=== PATIENT | male | born 1945 | race Caucasian/White ===

== ENCOUNTER 2018-12-08 17:24 | Inpatient (IN) ==
[2018-12-08] MEDS ORDERED: Ondansetron 4 MG/2 ML VIAL IVP ONE (18:15)
--- NOTE | 2018-12-08 18:26 | Emergency Department Note ---
Disposition Clinical Impression: Acute exacerbation of chronic obstructive airways disease, Dizziness Vomiting Qualifiers: Vomiting type: unspecified Vomiting Intractability: non-intractable Nausea presence: with nausea Qualified Code(s): R11.2 - Nausea with vomiting, unspecified Disposition: Admitted As Inpatient Condition: Fair Referrals: NONE,PCP [Primary Care Provider] - Forms: ED Satisfaction Letter Time of Disposition: 21:45 General Adult HPI - General Chief complaint: ED Shortness of Breath/Dyspnea Stated complaint: dizzy GABRIEL Time Seen by Provider: 12/08/18 18:03 Source: patient Limitations: no limitations Nursing Notes Reviewed: Yes Vital Signs Reviewed: Yes - History of Present Illness HPI Narrative: Patient presents to the ED with a chief complaint of dizziness, weakness, vomiting. Onset a couple of weeks ago. He states he feels weak and is having trouble standing up. He does not describe a dizziness spinning type sensation. He states every time he eats his been vomiting for the past 3 days. Denies ab dominal pain. Denies fever. No chest pain. Shortness of breath is at baseline. Dry cough. Patient denies any bleeding rectally. Denies vomiting blood. Pain Scale: 0 - Related Data Previous Rx's Medication Instructions Recorded Lidocaine Patch [Lidoderm 5% patch] 1 each TP DAILY PRN #3 adh..patch 05/26/17 Peg 3350/Na Sulf,Bicarb,Cl/KCl 4,000 ml PO ONCE #1 soln.recon 05/26/17 [Golytely Solution] Polyethylene Glycol 3350 [MiraLAX] 17 gm PO DAILY PRN #5 powd.pack 05/26/17 HYDROcodone/Acet 5/325 mg [[place] 1 tab PO Q6H PRN 3 Days #12 tab 11/13/17 5-325 mg] Pantoprazole Sodium [Protonix] 40 mg PO DAILY #30 tablet. 11/13/17 Allergies Allergy/AdvReac Type Severity Reaction Status Date / Time No Known Allergies Allergy Verified 11/13/17 14:02 All systems ED: reviewed and negative except as stated. Constitutional: Denies: fever Cardiovascular: Denies: chest pain Respiratory: Reports: cough, dyspnea Gastrointestinal: Reports: nausea, vomiting. Denies: abdominal pain, diarrhea Past Medical History - Past Medical History Attestation: Yes The following information was validated with the patient. Source: patient Medical history: Reports: COPD, diabetes, hyperlipidemia, hypertension Psychiatric history: Reports: no psych history - Social History Smoking Status: Former smoker Smokeless Tobacco Status: No Alcohol use: Reports: none Drug use: Reports: none Physical Exam Patient awake and alert in no distress. He does have bilateral horizontal nystagmus. - General Limitations: no limitations General appearance: alert - Head Head exam: atraumatic, normocephalic, normal inspection - Eye Eye exam: Present: PERRL, EOMI, nystagmus. Absent: periorbital swelling - ENT ENT exam: normal oropharynx, mucous membranes moist, TM's normal bilaterally - Neck Neck exam: Present: normal inspection - Chest Chest inspection: Present: normal inspection, symmetric chest wall rise - Respiratory Respiratory exam: Present: other (Decreased bilaterally) - Cardiovascular Cardiovascular exam: Present: tachycardia - Abdominal Exam Abdominal exam: Present: soft, Non-Tender - Neurological Exam Neurological exam: Present: alert, oriented X3 - Psychiatric Psychiatric exam: Present: normal affect - Skin Skin exam: Present: warm, dry Course Course Narrative: Patient is tachycardic but otherwise stable. Cardiac workup. CT head. Stanley weiss. - Reevaluation(s) Reevaluation #1: Patient reevaluated. Plenty of her rash was back. Mild maculopapular rash. He is also has a difficulty breathing. He has some extra Tory wheezing. He is in no distress. We will give him 3 treatments and some Solu-Medrol. Awaiting V/Q result at this time. Time: 21:18 - Consultations Consultation #1: Dr. Craig accepts for admission. Request blood cultures. Time: 21:56 Vital Signs Temperature 98.8 F 12/08/18 17:50 Pulse Rate 127 12/08/18 17:50 Respiratory Rate 18 12/08/18 17:50 Blood Pressure 110/70 12/08/18 17:50 O2 Sat by Pulse Oximetry 97 12/08/18 17:50 Temperature 98.8 F 12/08/18 17:50 Pulse Rate 105 12/08/18 21:27 Respiratory Rate 24 12/08/18 21:30 Blood Pressure 118/61 12/08/18 21:30 O2 Sat by Pulse Oximetry 96 12/08/18 21:30 Oxygen Delivery Oxygen Delivery Nasal Cannula Medical Decision Making - [facility] Narrative Medical decision making narrative: Patient with multiple complaints. He has not vomited here. CT abdomen pelvis is unremarkable. No signs of obstruction or inflammation. He is having a COPD exacerbation. His x-rays clear. He does have a leukocytosis we will treat him with an antibiotic. Dizziness. Improved but not resolved. CT head is unremarkable as well. Patient be in for these medical reasons and also some social concerns as he thinks he needs some home health. Unclear the cause of his leukocytosis. He was recently on steroids a couple of weeks ago. This could possibly be contributing. - Lab Data Result diagrams: 12/08/18 18:20 12/08/18 18:20 Lab Results 12/08/18 12/08/18 12/08/18 Range/Units 18:20 18:20 18:30 WBC 25.1 H (4.3-11.1) K/mcL RBC 4.05 L (4.19-5.50) M/mcL Hgb 12.1 L (12.9-16.9) g/dL Hct 36.7 L (37.5-50.1) % MCV 90.6 (83.0-100.0) fL MCH 29.9 (28.0-33.3) pg MCHC 33.0 (31.6-35.5) g/dL RDW 14.8 H (11.5-14.5) % Plt Count 159 (140-400) K/mcL MPV 11.0 (9.4-12.4) fL Immature Gran % 1.3 (0-4) % Seg Neutrophils % 69.5 % Lymphocytes % 3.7 % Monocytes % 24.7 % Eosinophils % 0.5 % Basophils % 0.3 % Neutrophils # 17.4 H (1.6-8.9) K/mcL Lymphocytes # 0.9 (0.6-4.6) K/mcL Monocytes # 6.2 H (0.0-1.3) K/mcL Eosinophils # 0.1 (0.0-0.6) K/mcL Basophils # 0.1 (0.0-0.2) K/mcL Platelet Estimate Normal (Normal) D-Dimer 5591 H (0-500) ng/mLFEU Sodium 133 L (136-145) mEq/L Potassium 4.4 (3.5-5.1) mEq/L Chloride 99 (98-107) mEq/L Carbon Dioxide 26 (23-29) mEq/L BUN 28 H (8-23) mg/dL Creatinine 2.75 H (0.70-1.30) mg/dL Est GFR ( Amer) 28 L (> 60) Est GFR (Non-Af Amer) 23 L (> 60) BUN/Creatinine Ratio 10 (6-26) Glucose 198 H (70-105) mg/dL Calculated Osmolality 287 (280-300) Calcium 9.2 (8.6-10.3) mg/dL Total Bilirubin 0.9 (0.3-1.0) mg/dL AST 15 (13-39) Units/L ALT 13 (7-52) Units/L Alkaline Phosphatase 60 (34-104) Units/L Troponin I < 0.03 (< 0.04) ng/mL Serum Total Protein 7.7 (6.4-8.9) g/dL Albumin 4.1 (3.5-5.7) g/dL Globulin 3.6 H (2.4-3.5) g/dL Albumin/Globulin Ratio 1.1 (1.1-2.2) Urine Color (Yellow) Urine Clarity (Clear) Urine pH (5.0-8.0) pH Units Ur Specific [place] (1.010-1.025) Urine Protein (Neg-Trace) mg/dL Urine Glucose (UA) (Normal) mg/dL Urine Ketones (Negative) mg/dL Urine Blood (Negative) Urine Nitrite (Negative) Urine Bilirubin (Negative) Urine Urobilinogen (Normal) mg/dL Ur Leukocyte Esterase (Negative) Urine Microscopic RBC (0-3) per hpf Urine Microscopic WBC (0-3) per hpf Ur Squamous Epith Cells (None-Few) per lpf Ur Renal Epithelial Cell (None-Few) per hpf Calcium Oxalate Crystal Urine Bacteria (None-Few) per hpf Hyaline Casts (None-Few) per lpf Waxy Casts (None Seen) per lpf Urine Mucus (Few) Ur Culture Indicated? (NO) 12/08/18 Range/Units 20:28 WBC (4.3-11.1) K/mcL RBC (4.19-5.50) M/mcL Hgb (12.9-16.9) g/dL Hct (37.5-50.1) % MCV (83.0-100.0) fL MCH (28.0-33.3) pg MCHC (31.6-35.5) g/dL RDW (11.5-14.5) % Plt Count (140-400) K/mcL MPV (9.4-12.4) fL Immature Gran % (0-4) % Seg Neutrophils % % Lymphocytes % % Monocytes % % Eosinophils % % Basophils % % Neutrophils # (1.6-8.9) K/mcL Lymphocytes # (0.6-4.6) K/mcL Monocytes # (0.0-1.3) K/mcL Eosinophils # (0.0-0.6) K/mcL Basophils # (0.0-0.2) K/mcL Platelet Estimate (Normal) D-Dimer (0-500) ng/mLFEU Sodium (136-145) mEq/L Potassium (3.5-5.1) mEq/L Chloride (98-107) mEq/L Carbon Dioxide (23-29) mEq/L BUN (8-23) mg/dL Creatinine (0.70-1.30) mg/dL Est GFR ( Amer) (> 60) Est GFR (Non-Af Amer) (> 60) BUN/Creatinine Ratio (6-26) Glucose (70-105) mg/dL Calculated Osmolality (280-300) Calcium (8.6-10.3) mg/dL Total Bilirubin (0.3-1.0) mg/dL AST (13-39) Units/L ALT (7-52) Units/L Alkaline Phosphatase (34-104) Units/L Troponin I (< 0.04) ng/mL Serum Total Protein (6.4-8.9) g/dL Albumin (3.5-5.7) g/dL Globulin (2.4-3.5) g/dL Albumin/Globulin Ratio (1.1-2.2) Urine Color Dark Yellow (Yellow) Urine Clarity Cloudy A (Clear) Urine pH 5.0 (5.0-8.0) pH Units Ur Specific [place] 1.025 (1.010-1.025) Urine Protein 100 H (Neg-Trace) mg/dL Urine Glucose (UA) Normal (Normal) mg/dL Urine Ketones Trace H (Negative) mg/dL Urine Blood Negative (Negative) Urine Nitrite Negative (Negative) Urine Bilirubin Moderate H (Negative) Urine Urobilinogen Normal (Normal) mg/dL Ur Leukocyte Esterase Trace H (Negative) Urine Microscopic RBC 5-15 H (0-3) per hpf Urine Microscopic WBC 5-15 H (0-3) per hpf Ur Squamous Epith Cells Many H (None-Few) per lpf Ur Renal Epithelial Cell Few (None-Few) per hpf Calcium Oxalate Crystal Present Urine Bacteria Moderate H (None-Few) per hpf Hyaline Casts Few (None-Few) per lpf Waxy Casts Few H (None Seen) per lpf Urine Mucus Moderate H (Few) Ur Culture Indicated? YES A (NO) - Radiology Data Radiology results reviewed: Yes I reviewed the patient's radiology results. Chest X-Ray 12/08/18 18:15 IMPRESSION: No active cardiopulmonary disease D/ / Otilio Dixon MD / Otilio Dixon MD Interpreting Provider: Otilio Dixon MD Head CT 12/08/18 18:15 IMPRESSION: No acute intracranial abnormality. D/ / Otilio Dixon MD / Otilio Dixon MD Interpreting Provider: Otilio Dixon MD Pulmonary Perfusion Imaging 12/08/18 19:25 IMPRESSION: Low probability for pulmonary embolus. D/ / Lincoln Armstrong MD / Lincoln Armstrong MD Interpreting Provider: Lincoln Armstrong MD Abdomen/Pelvis CT 12/08/18 19:26 IMPRESSION: 1. Wall thickening of the urinary bladder which could be due to cystitis or chronic bladder outlet obstruction 2. Right renal atrophy, possibly due to renal artery stenosis 3. Cholelithiasis with no evidence of cholecystitis 4. Diverticulosis with no evidence of diverticulitis 5. 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 EKG results narrative: Sinus tach [address] segments. QT 37 QTC 434. Unchanged from prior EKG in October.
[2018-12-08 18:36] LABS: Basophils % 0.3 %; Immature Granulocytes % 1.3 % (0-4); Lymphocytes % 3.7 %; Mean Corpuscular Hemoglobin 29.9 pg (28.0-33.3)
[2018-12-08 18:37] LABS: Basophils # 0.1 K/mcL (0.0-0.2); Eosinophils # 0.1 K/mcL (0.0-0.6); Eosinophils % 0.5 %; Hematocrit 36.7 % (37.5-50.1); Hemoglobin 12.1 g/dL (12.9-16.9); Lymphocytes # 0.9 K/mcL (0.6-4.6); Mean Corpuscular Volume 90.6 fL (83.0-100.0); Monocytes # 6.2 K/mcL (0.0-1.3); Monocytes % 24.7 %; Neutrophils # 17.4 K/mcL (1.6-8.9); Platelet Count 159 K/mcL (140-400); Red Blood Count 4.05 M/mcL (4.19-5.50); Red Cell Distribution Width 14.8 % (11.5-14.5); Segmented Neutrophils % 69.5 %
[2018-12-08 18:53] LABS: Platelet Estimate Normal (Normal)
[2018-12-08 18:56] LABS: Alanine Aminotransferase 13 Units/L (7-52); Albumin 4.1 g/dL (3.5-5.7); Albumin/Globulin Ratio 1.1 (1.1-2.2); Alkaline Phosphatase 60 Units/L (34-104); Aspartate Amino Transferase 15 Units/L (13-39); BUN/Creatinine Ratio 10 (6-26); Bilirubin,Total 0.9 mg/dL (0.3-1.0); Blood Urea Nitrogen 28 mg/dL (8-23); Calcium 9.2 mg/dL (8.6-10.3); Carbon Dioxide 26 mEq/L (23-29); Chloride 99 mEq/L (98-107); Globulin 3.6 g/dL (2.4-3.5); Glucose 198 mg/dL (70-105); Osmolality,Calculated 287 (280-300); Potassium 4.4 mEq/L (3.5-5.1); Sodium 133 mEq/L (136-145); Total Protein 7.7 g/dL (6.4-8.9); Troponin I < 0.03 ng/mL (< 0.04); eGFR For Non-African Americans 23 (> 60)
[2018-12-08 20:37] LABS: Bilirubin,Urine Moderate (Negative); Blood,Urine Negative (Negative); Clarity,Urine Cloudy (Clear); Color,Urine Dark Yellow (Yellow); Glucose,Urine (UA) Normal (Normal); Ketones,Urine Trace mg/dL (Negative); Leukocyte Esterase,Urine Trace (Negative); Nitrite,Urine Negative (Negative); Protein,Urine 100 mg/dL (Neg-Trace); Specific Gravity,Urine 1.025 (1.010-1.025); Urobilinogen,Urine Normal (Normal)
[2018-12-08 20:39] LABS: Squamous Epithelial Cell,Urine Many per lpf (None-Few)
[2018-12-08 20:54] LABS: Hyaline Casts,Urine Few per lpf (None-Few); Mucus,Urine Moderate (Few); Renal Epithelial Cells,Urine Few per hpf (None-Few); Waxy Casts,Urine Few per lpf (None Seen)
[2018-12-08 20:55] LABS: Bacteria,Urine Moderate per hpf (None-Few); Calcium Oxalate Crystals,Urine Present
[2018-12-08] MEDS ORDERED: methylPREDNISolone 125 MG/2 ML VIAL IVP ONE (21:17)
[2018-12-08] MEDS ORDERED: Ipratropium/Albuterol Neb 3 ML IH ONE (21:17)
[2018-12-08] MEDS ORDERED: Azithromycin 500 MG in D5% in Water 250 ML IVPB ONE (21:29)
--- NOTE | 2018-12-08 22:09 | Internal Med History&Physical ---
<Oscar Solano S - Last Filed: 12/08/18 23:44> Date of Encounter: 12/08/18 Time of Encounter: 22:47 Internal Medicine - H&P: HPI Chief complaint: sob/syncope Admitted From: Home Plans for Post Hospital Care: Home History of present illness: Mr. Nicolas is a 73 year old male with PMH of COPD on 3L, HLD, GERD and CKD. He is here today with the cc of syncope and SOB. The syncope has been going on for many weeks now, he states that when he stands up he passes out if he gets up too quikcly. He denies any preceeding palpiltations or chest pain. He denies tinnitus or visual changes. He states that he looses consciousness at times when he hits the ground. He denies any hx of arrythmia or a fib. He does take multiple diuretics but takes them as prescribed. He has been having increasing SOB from baseline x 3 days. He states that the most active thing he does is go to the bathroom and now he is having trouble doing so and gets very SOB. He has had increasing sputum production and cough. He denies any hemoptysis. He has had to increase his baseline oxygen from 3 L to 4 L at times. He is having a hard time talking in full sentences and family has had to help him answer questions. He does c/o fevers and chills. Family states he hasn't taken his temperature at home. He c/o diffuse excoriations and states he has bed bugs. Family denies this. They state he uses his back boot liner maker way too hard. He lives at home and hardly leaves the house, has a very hard time performing ADL's. In the ER the pt was found to have an elevated white count and D-dimer. CT scan abd/pelvis showed possible cystitis and renal aa stenosis. Due to poor kidney fxn, VQ scan was obtained and was negative for acute PE. Blood cx were ordered. He was given a one time dose of azithromycin in the ER. He will be admitted for further evaluation and treatment. Past Med Surg Social Fam HX - Past Medical History Medical history: COPD, diabetes, hyperlipidemia, hypertension Psychiatric history: no psych history - Past Surgical History Additional surgical history: abd surgery d/t trauma - Social History Smoking Status: Former smoker Smokeless Tobacco Status: No Alcohol use: none Drug use: none - Family History Mother Adopted: No Race: Hx Family Cardiac Disorders: Yes Father Adopted: No Race: Hx Family Cardiac Disorders: Yes Internal Medicine - H&P: Meds Aspirin [Lo-Dose Aspirin EC] 81 mg PO DAILY 12/08/18 [History] Furosemide [Lasix] 20 mg PO QPM 12/08/18 [History] Furosemide [Lasix] 40 mg PO QAM 12/08/18 [History] Insulin Glargine,Hum.rec.anlog [Lantus Solostar] 20 units SQ HS 12/08/18 [History] Insulin LISPRO [Humalog Kwikpen U-100] 15 unit SQ TIDAC 12/08/18 [History] Latanoprost [Xalatan] 1 drop BOTH EYES HS 12/08/18 [History] Lisinopril [Zestril] 40 mg PO DAILY 12/08/18 [History] Montelukast [Singulair] 10 mg PO DAILY 12/08/18 [History] Omeprazole [PriLOSEC] 20 mg PO DAILY 12/08/18 [History] Simvastatin 80 mg PO HS 12/08/18 [History] hydroCHLOROthiazide [Hydrochlorothiazide] 25 mg PO DAILY 12/08/18 [History] Allergy/AdvReac Type Severity Reaction Status Date / Time No Known Allergies Allergy Verified 12/08/18 22:07 All Systems PM: A 10-system review of systems was performed and is negative for pertinent findings except as documented above in the HPI. - Constitutional Constitutional: chills, fatigue, fever(s), falls, lethargy, malaise, weakness - EENT Eyes: no blurry vision, no change in vision Ears: no tinnitus - Cardiovascular Cardiovascular ROS IM: dyspnea, dyspnea on exertion, no chest pain, no palpitations - Respiratory Respiratory: cough, dyspnea on exertion, chest congestion, excessive phlegm production, no hemoptysis - Gastrointestinal Gastrointestinal: abdominal pain, nausea, vomiting, no diarrhea - Genitourinary Genitourinary ROS male: no difficulty urinating, no dysuria, no hematuria - Musculoskeletal Musculoskeletal ROS IM: back pain, neck pain, no stiffness, no tingling - Integumentary Integumentary IM: rash, sores - Neurological Neurological ROS: dizziness, weakness, no numbness, no tingling - Psychiatric Psychiatric: no anxiety, no depression - Endocrine Endocrine IM: fatigue - Hematologic/Lymphatic Hematologic/Lymphatic: no easy bleeding, no easy bruising - Constitutional Vitals: Temp Pulse Resp BP Pulse Ox 98.8 F 105 24 118/61 96 12/08/18 17:50 12/08/18 21:27 12/08/18 21:30 12/08/18 21:30 12/08/18 21:30 General appearance: Present: mild distress, A&O X 3, obese Exam: general - aox3, mild distress, cooperative, obese heent - dry mucuous membranes, NCAT, no scleral icterus neck - no jvd, trachea midline cardio - tacycardia, s1s2, cta, no mrg lungs - decreased breath sounds, mild resp distress, unable to speak in full setences (+) coarse breath sounds and rhonchi abd- mild tenderness to palpation, no rebound/guarding, no peritoneal signs back - no rash, no brusing noted; there are some excoriations to the back towards shoulders extremities - moves all extremeities equally, strength 5/5 excoriations to the LE and UE neuro - no FND, CN2-12 grossly intact, sensation intact psych - mildly anxious skin - multiple excoriations to the abdomen, back, UE and LE Internal Med - H&P Results - Labs CBC & Chem 7: 12/08/18 18:20 12/08/18 18:20 Labs: Short CBC 12/08/18 Range/Units 18:20 WBC 25.1 H (4.3-11.1) K/mcL Hgb 12.1 L (12.9-16.9) g/dL Hct 36.7 L (37.5-50.1) % Plt Count 159 (140-400) K/mcL Neutrophils # 17.4 H (1.6-8.9) K/mcL BMP 12/08/18 18:20 Sodium 133 L Potassium 4.4 Chloride 99 Carbon Dioxide 26 BUN 28 H Creatinine 2.75 H Glucose 198 H Calcium 9.2 Cardiac Enzymes 12/08/18 Range/Units 18:20 Troponin I < 0.03 (< 0.04) ng/mL Liver Function 12/08/18 Range/Units 18:20 Total Bilirubin 0.9 (0.3-1.0) mg/dL AST 15 (13-39) Units/L ALT 13 (7-52) Units/L Alkaline Phosphatase 60 (34-104) Units/L Albumin 4.1 (3.5-5.7) g/dL Urine 12/08/18 Range/Units 20:28 Urine Color Dark Yellow (Yellow) Urine Clarity Cloudy A (Clear) Urine pH 5.0 (5.0-8.0) pH Units Ur Specific [place] 1.025 (1.010-1.025) Urine Protein 100 H (Neg-Trace) mg/dL Urine Glucose (UA) Normal (Normal) mg/dL - Impressions ITS Impressions Chest X-Ray 12/08/18 18:15 IMPRESSION: No active cardiopulmonary disease D/ / Otilio Dixon MD / Otilio Dixon MD Interpreting Provider: Otilio Dixon MD Head CT 12/08/18 18:15 IMPRESSION: No acute intracranial abnormality. D/ / Otilio Dixon MD / Otilio Dixon MD Interpreting Provider: Otilio Dixon MD Pulmonary Perfusion Imaging 12/08/18 19:25 IMPRESSION: Low probability for pulmonary embolus. D/ / Lincoln Armstrong MD / Lincoln Armstrong MD Interpreting Provider: Lincoln Armstrong MD Abdomen/Pelvis CT 12/08/18 19:26 IMPRESSION: 1. Wall thickening of the urinary bladder which could be due to cystitis or chronic bladder outlet obstruction 2. Right renal atrophy, possibly due to renal artery stenosis 3. Cholelithiasis with no evidence of cholecystitis 4. Diverticulosis with no evidence of diverticulitis 5. 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 with no evidence of femoral head collapse D/ / Otilio Dixon MD / Otilio Dixon MD Interpreting Provider: Otilio Dixon MD - Assessment and Plan (1) Sepsis Current Visit: Yes Status: Acute Assessment and plan: Pt with increasing SOB from baseline, increased oxygen needs from baseline, increasing sputum production - meets criteria for SIRS for WBC/HR/RR; has remained afebrile - on chronic 3 L home oxygen, has been requiring 4L Source of infxn unknown at this time, could be possible UTI vs developing PNA not seen on imaging XR chest showed no acute cardiopulmonary process, consider repeating when pt is rehydrated CT abd/pelvis showed lingular scarring; wall thickening of urinary bladder cystitis vs chronic bladder outlet obstruction VQ scan low probability for PE UA showed (+) ketones, leukocyte esterase, WBC Pt denies hospitalization in the last 90 days nor has he received IV abx in the last 90 days Plan: - 500cc bolus 0.9 NS followed by 100cc/hr 0.9 NS - blood cx pending - urine cx pending - sputum cx pending - start azithromycin/rocephin day 1; will cover for CAP and UTI - strep pneumo and legionella urine antigens pending - mucinex BID - duonebs - solumedrol 60mg q8hr - zofran prn nausea - FEN: ADA diet - DVT prophylaxis: SQ heparin - dispo: syncope workup, improvement of respiratory status; will require inpt IV abx PTO evaluation, SW consulted Qualifiers: Sepsis type: sepsis due to unspecified organism Qualified Code(s): A41.9 - Sepsis, unspecified organism (2) Syncope Current Visit: Yes Status: Acute Assessment and plan: Pt c/o syncopal episodes, states when he stands up he gets lightheaded and passes out - no on anticoagulation - EKG showed NSR, no known hx of a fib and denies hx of heart dz Could be 2/2 sepsis vs carotid aa stenosis vs arrythmia induced vs medication induced (awaiting med reconciliation) - head CT negative for acute intracranial abnormality - meclizine given in the ER Plan: - consider cardiology consult if the below is abnormal - ECHO pending - carotid duplex US pending - orthostatics pending - UDS pending Qualifiers: Syncope type: unspecified Qualified Code(s): R55 - Syncope and collapse (3) DVT prophylaxis Current Visit: Yes Status: Acute Assessment and plan: sq heparin (4) Acute kidney injury superimposed on CKD Current Visit: Yes Status: Acute Assessment and plan: Pt has had an increasing creatinine over the last few months - has not been admitted to [facility] since 2018; follows with Dr. Doll as an outpatient - baseline creatinine appears to be around 2 CT on admission showed right renal atrophy, possibly due to renal artery stenosis Plan: - urine sodium/creatinine/eosinophils pending - urine pr/creatinine ratio pending - retroperitoneal US pending - strict I&O - avoid nephrotoxins and renally dose rx when appropriate - nephrology consulted - will hold PPI, lasix, HCTZ (5) Obesity Current Visit: No Status: Chronic Assessment and plan: BMI 31.3, chronic, counseled. Qualifiers: Obesity type: due to excess calories Obesity classification: adult class 1 (BMI 30 - 34.9) Serious obesity comorbidity presence: with serious comorbidity Body mass index: BMI 31.0-31.9 Qualified Code(s): E66.09 - Other obesity due to excess calories; Z68.31 - Body mass index (BMI) 31.0-31.9, adult (6) UTI (urinary tract infection) Current Visit: Yes Status: Acute Assessment and plan: UA as above. Plan as above. Qualifiers: Urinary tract infection type: acute cystitis Hematuria presence: without hematuria Qualified Code(s): N30.00 - Acute cystitis without hematuria (7) Elevated d-dimer Current Visit: Yes Status: Acute Assessment and plan: D-dimer 5591 - VQ scan negative for pulmonary embolism - pt not UTD on age appropriate cancer screening, consider colonoscopy verses further imaging to evaluate for underlying lung mass (8) Type 2 diabetes mellitus Current Visit: No Status: Chronic Assessment and plan: Glucose on admission 273. MDSS, accucheck, ADA diet. One time levemir now. Qualifiers: Diabetes mellitus termite control representative insulin use: without termite control representative use Diabetes mellitus complication status: without complication Qualified Code(s): E11.9 - Type 2 diabetes mellitus without complications (9) Acute exacerbation of chronic obstructive airways disease Current Visit: Yes Status: Acute Assessment and plan: See plan as above for sepsis. Possibly 2/2 developing PNA vs viral infxn. 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 Can consider further workup as an outpatient. (12) GERD (gastroesophageal reflux disease) Current Visit: No Status: Chronic Assessment and plan: chronic, takes PPI at home and will hold in the setting of NEVILLE until AIN r/o. Qualifiers: Esophagitis presence: esophagitis presence not specified Qualified Code(s): K21.9 - Gastro-esophageal reflux disease without esophagitis - Time Spent With Patient Total time spent is greater than 50% in coordination of care (as documented) at patient's floor/unit and/or counseling patient: 25 - 35 minutes <Ray Carrera - Last Filed: 12/09/18 03:10> Date of Encounter: 12/08/18 Internal Medicine - H&P: HPI History of present illness: Mr. Nicolas is a 73 year old male All Systems PM: A 10-system review of systems was performed and is negative for pertinent findings except as documented above in the HPI. - Constitutional Vitals: Temp Pulse Resp BP Pulse Ox 99.2 F 114 24 127/78 95 12/08/18 23:31 12/08/18 23:47 12/08/18 23:47 12/08/18 23:47 12/09/18 01:00 Internal Med - H&P Results - Labs CBC & Chem 7: 12/09/18 01:07 12/09/18 01:07 Labs: Short CBC 12/08/18 12/09/18 Range/Units 18:20 01:07 WBC 25.1 H 21.9 H (4.3-11.1) K/mcL Hgb 12.1 L 11.1 L (12.9-16.9) g/dL Hct 36.7 L 33.7 L (37.5-50.1) % Plt Count 159 147 (140-400) K/mcL Neutrophils # 17.4 H (1.6-8.9) K/mcL BMP 12/08/18 12/09/18 18:20 01:07 Sodium 133 L 133 L Potassium 4.4 3.9 Chloride 99 96 L Carbon Dioxide 26 25 BUN 28 H 32 H Creatinine 2.75 H 2.99 H Glucose 198 H 346 H Calcium 9.2 8.6 Cardiac Enzymes 12/08/18 Range/Units 18:20 Troponin I < 0.03 (< 0.04) ng/mL Liver Function 12/08/18 Range/Units 18:20 Total Bilirubin 0.9 (0.3-1.0) mg/dL AST 15 (13-39) Units/L ALT 13 (7-52) Units/L Alkaline Phosphatase 60 (34-104) Units/L Albumin 4.1 (3.5-5.7) g/dL Urine 12/08/18 Range/Units 20:28 Urine Color Dark Yellow (Yellow) Urine Clarity Cloudy A (Clear) Urine pH 5.0 (5.0-8.0) pH Units Ur Specific [place] 1.025 (1.010-1.025) Urine Protein 100 H (Neg-Trace) mg/dL Urine Glucose (UA) Normal (Normal) mg/dL - Impressions ITS Impressions Chest X-Ray 12/08/18 18:15 IMPRESSION: No active cardiopulmonary disease D/ / Otilio Dixon MD / Otilio Dixon MD Interpreting Provider: Otilio Dixon MD Head CT 12/08/18 18:15 IMPRESSION: No acute intracranial abnormality. D/ / Otilio Dixon MD / Otilio Dixon MD Interpreting Provider: Otilio Dixon MD Pulmonary Perfusion Imaging 12/08/18 19:25 IMPRESSION: Low probability for pulmonary embolus. D/ / Lincoln Armstrong MD / Lincoln Armstrong MD Interpreting Provider: Lincoln Armstrong MD Abdomen/Pelvis CT 12/08/18 19:26 IMPRESSION: 1. Wall thickening of the urinary bladder which could be due to cystitis or chronic bladder outlet obstruction 2. Right renal atrophy, possibly due to renal artery stenosis 3. Cholelithiasis with no evidence of cholecystitis 4. Diverticulosis with no evidence of diverticulitis 5. 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 with no evidence of femoral head collapse D/ / Otilio Dixon MD / Otilio Dixon MD Interpreting Provider: Otilio Dixon MD - Assessment and Plan (1) Acute exacerbation of chronic obstructive airways disease Current Visit: Yes Status: Acute (2) Vomiting Current Visit: Yes Status: Acute Qualifiers: Vomiting type: unspecified Vomiting Intractability: non-intractable Nausea presence: with nausea Qualified Code(s): R11.2 - Nausea with vomiting, unspecified (3) Syncope Current Visit: Yes Status: Acute Qualifiers: Syncope type: unspecified Qualified Code(s): R55 - Syncope and collapse (4) DVT prophylaxis Current Visit: Yes Status: Acute (5) Acute kidney injury superimposed on CKD Current Visit: Yes Status: Acute (6) Sepsis Current Visit: Yes Status: Acute Qualifiers: Sepsis type: sepsis due to unspecified organism Qualified Code(s): A41.9 - Sepsis, unspecified organism (7) Obesity Current Visit: No Status: Chronic Qualifiers: Obesity type: due to excess calories Obesity classification: adult class 1 (BMI 30 - 34.9) Serious obesity comorbidity presence: with serious comorbidity Body mass index: BMI 31.0-31.9 Qualified Code(s): E66.09 - Other obesity due to excess calories; Z68.31 - Body mass index (BMI) 31.0-31.9, adult (8) UTI (urinary tract infection) Current Visit: Yes Status: Acute Qualifiers: Urinary tract infection type: acute cystitis Hematuria presence: without hematuria Qualified Code(s): N30.00 - Acute cystitis without hematuria (9) Elevated d-dimer Current Visit: Yes Status: Acute (10) Type 2 diabetes mellitus Current Visit: No Status: Chronic Qualifiers: Diabetes mellitus residential insulin use: without termite control representative use Diabetes mellitus complication status: without complication Qualified Code(s): E11.9 - Type 2 diabetes mellitus without complications (11) Avascular necrosis Current Visit: No Status: Chronic (12) GERD (gastroesophageal reflux disease) Current Visit: No Status: Chronic Qualifiers: Esophagitis presence: esophagitis presence not specified Qualified Code(s): K21.9 - Gastro-esophageal reflux disease without esophagitis - Time Spent With Patient Total time spent is greater than 50% in coordination of care (as documented) at patient's floor/unit and/or counseling patient: - Attending Attestation I performed a history and physical examination of the patient and discussed his management with the resident. I reviewed the resident's note and agree with the documented plan of care. In short patient is a 73-year-old male with past medical history of COPD on 3 L home oxygen and chronic kidney disease who presented to the ED with complaints of worsening shortness of breath for the past 2 weeks, subjective fever and chills and presyncope with one episode of syncope. Patient also reports 1 episode of vomiting nonbloody nonbilious emesis and decreased by mouth for the past several days. Syncopal and presyncopal events appear to be orthostatic in nature as he reports dizziness with a rising in the absence of any reports of palpitations, chest pain. Initial laboratory workup Notable for a leukocytosis of 21.5 and elevation in creatinine of 2.7 above baseline which appears to be around 2.00. Patient also noted to have an elevated d-dimer. Was sent for VQ scan which was determined to be low probability for PE. Chest x-ray did not show any active cardiopulmonary dis ease. CT scan of the abdomen notable only for evidence of renal artery stenosis and right renal atrophy which appears to be a new finding since October of last year when a retroperitoneal ultrasound was performed. Patient currently followed by Dr. Sheppard with nephrology. EKG showed normal sinus rhythm with no evidence of ischemic changes. Patient admitted for syncope workup which we suspect is most likely orthostatic in nature given the patient's decreased by mouth, recent history of vomiting, continued Lasix use and NEVILLE which is likely prerenal. We will obtain retroperitoneal ultrasound and urine studies. Nephrology consult. We will obtain orthostatic blood pressures for syncope wor kup as well as echocardiogram and carotid Doppler. We will start patient on fluid resuscitation. Treat for possible pneumonia plus or minus COPD exacerbation. On final assessment patient was noted to have mild blanching erythema of the right lower extremity with pain. We will obtain a right lower extremity duplex to rule out DVT.
[2018-12-08] MEDS ORDERED: Naloxone 0.4 MG/ML INJ IVP PRN (22:12)
[2018-12-08] MEDS ORDERED: *HR* Heparin 5,000 UNIT/ML VIAL SQ SCH (22:15)
[2018-12-08] MEDS ORDERED: Ipratropium/Albuterol Neb 3 ML IH PRN (22:39)
[2018-12-08] MEDS ORDERED: Dextrose Gel 15 GM/37.5 ML TUBE PO PRN ×2 (22:39)
[2018-12-08] MEDS ORDERED: D5% in Water 1,000 ML IVC PRN (22:39)
[2018-12-08] MEDS ORDERED: *HR* Dextrose 50 % in Water (Syg) 50 ML SYRINGE IVP PRN (22:39)
[2018-12-08] MEDS ORDERED: Ondansetron 4 MG/2 ML VIAL IVP PRN (22:46)
[2018-12-08] MEDS ORDERED: Insulin DETEMIR 100 UNIT/ML X5UNITS SQ ONE (23:03)
[2018-12-08] MEDS ORDERED: 0.9 % Sodium Chloride 500 ML IVC ONE (23:28)
[2018-12-09] MEDS ORDERED: *HR* Heparin 5,000 UNIT/ML VIAL IVP ONE (00:06)
[2018-12-09] MEDS ORDERED: *HR* Heparin 5,000 UNIT/ML VIAL IVP PRN ×2 (00:06)
[2018-12-09] MEDS ORDERED: Heparin 25,000 UNIT/250 ML D5W 25,000 UNIT/250 ML IV.SOLN IVC SCH (00:15)
[2018-12-09] MEDS: Insulin LISPRO 300 UNITS/3 ML VIAL SQ SCH ×5 (00:28→23:27)
[2018-12-09 01:18] LABS: Hematocrit 33.7 % (37.5-50.1); Hemoglobin 11.1 g/dL (12.9-16.9); Mean Corpuscular HGB Conc 32.9 g/dL (31.6-35.5); Mean Corpuscular Hemoglobin 30.2 pg (28.0-33.3); Mean Corpuscular Volume 91.8 fL (83.0-100.0); Mean Platelet Volume 10.4 fL (9.4-12.4); Platelet Count 147 K/mcL (140-400); Red Blood Count 3.67 M/mcL (4.19-5.50)
[2018-12-09] MEDS: 0.9 % Sodium Chloride 1,000 ML IVC SCH ×2 (01:20→16:38)
[2018-12-09 01:27] LABS: INR 1.3; Prothrombin Time 14.3 Seconds (9.4-12.1)
[2018-12-09 01:41] LABS: Calcium 8.6 mg/dL (8.6-10.3); Potassium 3.9 mEq/L (3.5-5.1)
[2018-12-09 07:35] LABS: Protein/Creatinine Ratio,Urine 0.4 mg/mg (0.00-0.20); Sodium, Urine 12.2 mEq/L
[2018-12-09] MEDS: Aspirin Enteric Coated 81 MG Tablet PO SCH (07:55)
[2018-12-09] MEDS: cefTRIAXone 2,000 MG in Water for inj. (sterile) 20 ML 20 ML IVP SCH (07:58)
[2018-12-09] MEDS ORDERED: methylPREDNISolone 125 MG/2 ML VIAL IVP SCH (08:00)
[2018-12-09 09:06] LABS: Amphetamine Screen,Urine Negative ng/mL (Cutoff=1000); Barbiturate Screen,Urine Negative ng/mL (Cutoff=200); Benzodiazepines Screen,Urine Negative ng/mL (Cutoff=200); Cannabinoid Screen,Urine Negative ng/mL (Cutoff = 50); Cocaine Screen,Urine Negative ng/mL (Cutoff= 300); Opiate Screen,Urine Negative ng/mL (Cutoff=300); Phencyclidine Screen,Urine Negative ng/mL (Cutoff=25)
[2018-12-09] MEDS: Azithromycin 500 MG in D5% in Water 250 ML IVPB SCH (11:15)
--- NOTE | 2018-12-09 11:57 | Nephrology Consult Note ---
Date of Encounter: 12/09/18 Time of Encounter: 11:20 Assessment and Plan (1) Acute kidney injury superimposed on CKD Current Visit: Yes Status: Acute Nonoliguric NEVILLE on CKD stage IIIb-IV with baseline GFR in low 30s to upper 20s. Recommend continuing IVF today. No indications for DERMATOLOGY PHYSICIAN. Continue to follow a renal protective strategy, and thank you for consulting the [facility]. I reviewed his outpatient progress notes and inpatient progress notes; I also reviewed his labs and vital sign trends, plus imaging and provided in depth medical decision making and complex evaluation and management Will continue to follow with you. (2) CKD (chronic kidney disease), stage III Current Visit: Yes Status: Chronic His baseline CKD stage IIIB to stage IV based upon a review his outpatient GFR's for non- (3) Diabetic renal disease Current Visit: Yes Status: Chronic Presumed etiology of his CKD is primarily diabetic, as well as hypertensive and obesity. I counseled him to focus on lifestyle modifications to help delay progression of chronic kidney disease Qualifiers: Diabetes mellitus type: type 2 Qualified Code(s): E11.21 - Type 2 diabetes mellitus with diabetic nephropathy (4) Acute exacerbation of chronic obstructive airways disease Current Visit: Yes Status: Acute As per primary (5) Hyponatremia Current Visit: Yes Status: Acute Mild hypovolemic hyponatremia. Continue IV fluids. Will monitor. No need for 3% saline at this time. Recommend a slow correction of 6-8 mEq in the first 24 hours. History of Present Illness - Reason for Consult Consult date: 12/09/18 Acute Kidney Injury, Chronic Kidney Disease Requesting physician: Oscar Solano - Chief Complaint NEVILLE on CKD stage IIIb-IV - History of Present Illness The patient is a very pleasant 73-year-old male well known to me with a past medical history of chronic kidney disease, hypertension, diabetes, morbid obesity and chronic psoriasis who presented with a recent syncopal event as well as shortness of breath. He did not affirm nausea, vomiting, diarrhea or recent use of [id number]-[id number] NSAIDs. I follow him in my outpatient nephrology clinic at the [place], [place] location. Nephrology was consult it because his renal function was worsening compared to baseline. He reported feeling dizzy and lightheaded and had a passing out episode prior to arrival. He could not describe palliative or provocative factors. Onset was just in the last few days. Past Med Surg Social Fam HX - Past Medical History Medical history: COPD, diabetes, hyperlipidemia, hypertension Psychiatric history: no psych history - Past Surgical History Additional surgical history: abd surgery d/t trauma - Social History Smoking Status: Former smoker Smokeless Tobacco Status: No Alcohol use: none Drug use: none - Family History Mother Adopted: No Race: Hx Family Cardiac Disorders: Yes Father Adopted: No Race: Hx Family Cardiac Disorders: Yes Medications and Allergies Aspirin [Lo-Dose Aspirin EC] 81 mg PO DAILY 12/08/18 [History] Furosemide [Lasix] 20 mg PO QPM 12/08/18 [History] Furosemide [Lasix] 40 mg PO QAM 12/08/18 [History] Insulin Glargine,Hum.rec.anlog [Lantus Solostar] 20 units SQ HS 12/08/18 [History] Insulin LISPRO [Humalog Kwikpen U-100] 15 unit SQ TIDAC 12/08/18 [History] Latanoprost [Xalatan] 1 drop BOTH EYES HS 12/08/18 [History] Lisinopril [Zestril] 40 mg PO DAILY 12/08/18 [History] Montelukast [Singulair] 10 mg PO DAILY 12/08/18 [History] Omeprazole [PriLOSEC] 20 mg PO DAILY 12/08/18 [History] Simvastatin 80 mg PO HS 12/08/18 [History] hydroCHLOROthiazide [Hydrochlorothiazide] 25 mg PO DAILY 12/08/18 [History] Allergy/AdvReac Type Severity Reaction Status Date / Time No Known Allergies Allergy Verified 12/08/18 22:07 Review of Systems All Systems: reviewed and no additional remarkable complaints except as stated Exam - Vital Signs Vital signs: Initial Vital Signs Temp Pulse Resp BP Pulse Ox 98.8 F 127 18 110/70 97 12/08/18 17:50 12/08/18 17:50 12/08/18 17:50 12/08/18 17:50 12/08/18 17:50 Vital Signs - Last 8 Hours Temp Pulse Resp BP Pulse Ox 12/09/18 11:30 98.0 F 88 16 139/55 90 12/09/18 06:57 97.7 F 85 14 143/59 96 12/09/18 04:27 98.1 F 81 22 128/82 98 Intake and Output 12/08/18 12/09/18 12/09/18 23:59 07:59 15:59 Intake Total 250 / 250 500 / 782.4 282.4 / 782.4 Output Total 0 / 0 0 / 0 Balance 250 / 250 500 / 782.4 282.4 / 782.4 Intake: IV Fluids 250 / 250 500 / 542.4 42.4 / 542.4 0.9 % Sodium Chloride 500 ML @ 500 / 500 999 mls/hr IVC .Q31M [facility] Rx#: [id number] Heparin 25,000 UNIT/250 ML D5W 22.4 / 22.4 25,000 unit In 250 ml @ 10.9 UNIT/KG/HR 10.083 mls/hr IVC . Q24H [facility] Rx#:[id number] Rocephin 2,000 MG In Water for 20 / 20 inj. (sterile) 20 ML @ 600 mls/ hr IVP Q24H [facility] Rx#:[id number] Zithromax 500 mg In Dextrose 5% 250 / 250 250 ML @ 252 mls/hr IVPB ONCE [facility] Rx#:[id number] Oral 0 / 240 240 / 240 Output: Urine 0 / 0 0 / 0 Other: Meal Breakfast Percent of Meal Consumed 90% # Voids 1 Weight 92.5 kg Blood Glucose* 280 344 250 - General Appearance General appearance: well-developed, well-nourished, appears started age, obese EENT: ATNC, PERRL, mucous membranes moist Neck: supple Respiratory: clear Cardiology: no edema, regular rate, regular rhythm, normal S1, normal S2 Gastrointestinal: normoactive bowel sounds, no guarding, obese Integumentary: rash Neurologic: no focal deficit, no asterixis, alert and oriented x3 Musculoskeletal: no deformities, no erythema, no cyanosis, no clubbing Psychiatric: mood/affect appropriate, cooperative Results - Lab Results 12/09/18 01:07 12/09/18 01:07 Most recent lab results 12/09/18 12/09/18 01:07 07:10 Calcium 8.6 Urine Creatinine 190 Urine Sodium 12.2 Urine Total Protein 76 H Consult Discharge Plan - Plan Referrals: NONE,PCP [Primary Care Provider] -
--- NOTE | 2018-12-09 13:37 | Internal Med Progress Note ---
Hospitalist Progress Note - Encounter Date of Encounter: 12/09/18 Time of Encounter: 13:35 - Subjective Interval History: Evaluated patient earlier today. He was lying down in bed. Denied any new complaints at this time. He did have urine output earlier today. He denies any fevers or chills. Shortness of breath is improving. Denies any chest pain. Tolerating diet well. Does have some cough. - Exam Vitals: Temp Pulse Resp BP Pulse Ox 98.0 F 88 16 139/55 90 12/09/18 11:30 12/09/18 11:30 12/09/18 11:30 12/09/18 11:30 12/09/18 11:30 Exam: General: Patient is alert, no acute distress, oriented x 3 ENT: Mucous membranes moist Respiratory: Prolonged expiratory phase. End expiratory wheezing. Cardiovascular: Regular rate and rhythm. s1 and s2 normal No clicks, rubs, gallops, or murmurs. Mild pedal edema Abdomen: Abdomen is soft, nontender. Bowel sounds are present Musculoskeletal: Spontaneously moving all extremities Skin: warm, dry, intact. Neuro: Alert oriented x 3 normal cranial nerves, no focal deficits - Assessment and Plan (1) Sepsis Current Visit: Yes Status: Acute (2) Acute exacerbation of chronic obstructive airways disease Current Visit: Yes Status: Acute (3) Vomiting Current Visit: Yes Status: Acute (4) Syncope Current Visit: Yes Status: Acute (5) Acute kidney injury superimposed on CKD Current Visit: Yes Status: Acute (6) Obesity Current Visit: No Status: Chronic (7) UTI (urinary tract infection) Current Visit: Yes Status: Acute (8) Elevated d-dimer Current Visit: Yes Status: Acute (9) Type 2 diabetes mellitus Current Visit: Yes Status: Chronic (10) Avascular necrosis Current Visit: No Status: Chronic (11) GERD (gastroesophageal reflux disease) Current Visit: No Status: Chronic (12) DVT prophylaxis Current Visit: Yes Status: Acute - Summary of Assessment and Plan Summary of Assessment and Plan: Patient being treated for sepsis most likely from UTI with COPD exacerbation along with acute kidney injury on chronic kidney disease. Nephrology following. Recommend continuing IV hydration. Legionella and streptococcal antigens have been negative. Await urine culture results. Creatinine 2.99 today. We will continue to monitor. Avoid nephrotoxic agents. Venous Doppler has not been completed yet. Will await results and discontinue IV heparin if no DVT noted. Continue current antibiotics. Blood sugars are elevated. Will add Levemir to morning regimen and continue sliding scale coverage. We will taper steroids. Continue bronchodilators for COPD. Moderate risk for complications. - Time Spent with Patient Total time spent is greater than 50% in coordination of care (as documented) at patient's floor/unit and/or counseling patient: Internal Medicine: Result - Labs CBC & Chem 7: 12/09/18 01:07 12/09/18 01:07 Labs: Short CBC 12/08/18 12/09/18 Range/Units 18:20 01:07 WBC 25.1 H 21.9 H (4.3-11.1) K/mcL Hgb 12.1 L 11.1 L (12.9-16.9) g/dL Hct 36.7 L 33.7 L (37.5-50.1) % Plt Count 159 147 (140-400) K/mcL Neutrophils # 17.4 H (1.6-8.9) K/mcL BMP 12/08/18 12/09/18 18:20 01:07 Sodium 133 L 133 L Potassium 4.4 3.9 Chloride 99 96 L Carbon Dioxide 26 25 BUN 28 H 32 H Creatinine 2.75 H 2.99 H Glucose 198 H 346 H Calcium 9.2 8.6 Cardiac Enzymes 12/08/18 Range/Units 18:20 Troponin I < 0.03 (< 0.04) ng/mL Liver Function 12/08/18 Range/Units 18:20 Total Bilirubin 0.9 (0.3-1.0) mg/dL AST 15 (13-39) Units/L ALT 13 (7-52) Units/L Alkaline Phosphatase 60 (34-104) Units/L Albumin 4.1 (3.5-5.7) g/dL Urine 12/08/18 Range/Units 20:28 Urine Color Dark Yellow (Yellow) Urine Clarity Cloudy A (Clear) Urine pH 5.0 (5.0-8.0) pH Units Ur Specific [place] 1.025 (1.010-1.025) Urine Protein 100 H (Neg-Trace) mg/dL Urine Glucose (UA) Normal (Normal) mg/dL - ABG Interpretation ABG results: PT/INR, D-dimer PT 14.3 Seconds (9.4-12.1) H 12/09/18 01:07 5591 ng/mLFEU (0-500) H 12/08/18 18:30 - Impressions Impressions Chest X-Ray 12/08/18 18:15 IMPRESSION: No active cardiopulmonary disease D/ / Otilio Dixon MD / Otilio Dixon MD Interpreting Provider: Otilio Dixon MD Head CT 12/08/18 18:15 IMPRESSION: No acute intracranial abnormality. D/ / Otilio Dixon MD / Otilio Dioxn MD Interpreting Provider: Otilio Dixon MD Pulmonary Perfusion Imaging 12/08/18 19:25 IMPRESSION: Low probability for pulmonary embolus. D/ / Lincoln Armstrong MD / Lincoln Armstrong MD Interpreting Provider: Lincoln Armstrong MD Abdomen/Pelvis CT 12/08/18 19:26 IMPRESSION: 1. Wall thickening of the urinary bladder which could be due to cystitis or chronic bladder outlet obstruction 2. Right renal atrophy, possibly due to renal artery stenosis 3. Cholelithiasis with no evidence of cholecystitis 4. Diverticulosis with no evidence of diverticulitis 5. 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 with no evidence of femoral head collapse D/ / Otilio Dixon MD / Otilio Dixon MD Interpreting Provider: Otilio Dixon MD Consult Discharge Plan - Plan Referrals: NONE,PCP [Primary Care Provider] - (1) Sepsis Qualifiers: Sepsis type: sepsis due to unspecified organism Qualified Code(s): A41.9 - Sepsis, unspecified organism (3) Vomiting Qualifiers: Vomiting type: unspecified Vomiting Intractability: non-intractable Nausea presence: with nausea Qualified Code(s): R11.2 - Nausea with vomiting, unspecified (4) Syncope Qualifiers: Syncope type: unspecified Qualified Code(s): R55 - Syncope and collapse (6) Obesity Qualifiers: Obesity type: due to excess calories Obesity classification: adult class 1 (BMI 30 - 34.9) Serious obesity comorbidity presence: with serious comorbidity Body mass index: BMI 31.0-31.9 Qualified Code(s): E66.09 - Other obesity due to excess calories; Z68.31 - Body mass index (BMI) 31.0-31.9, adult (7) UTI (urinary tract infection) Qualifiers: Urinary tract infection type: acute cystitis Hematuria presence: without hematuria Qualified Code(s): N30.00 - Acute cystitis without hematuria (9) Type 2 diabetes mellitus Qualifiers: Diabetes mellitus intermediate insulin use: without long term acute care registered nurse use Diabetes mellitus complication status: with hyperglycemia Qualified Code(s): E11.65 - Type 2 diabetes mellitus with hyperglycemia (11) GERD (gastroesophageal reflux disease) Qualifiers: Esophagitis presence: esophagitis presence not specified Qualified Code(s): K21.9 - Gastro-esophageal reflux disease without esophagitis
[2018-12-09] MEDS ORDERED: Insulin DETEMIR 100 UNIT/ML X5UNITS SQ SCH (21:00)
[2018-12-09] MEDS: Latanoprost 2.5 ML BOTTLE BOTH EYES SCH (23:25)
[2018-12-09] MEDS: Insulin DETEMIR 100 UNIT/ML X5UNITS SQ SCH (23:26)
[2018-12-10] MEDS: *HR* Heparin 5,000 UNIT/ML VIAL SQ SCH ×2 (06:13→17:20)
[2018-12-10] MEDS: 0.9 % Sodium Chloride 1,000 ML IVC SCH (06:17)
[2018-12-10 07:07] LABS: Hematocrit 31.1 % (37.5-50.1); Hemoglobin 10.1 g/dL (12.9-16.9); Mean Corpuscular HGB Conc 32.5 g/dL (31.6-35.5); Mean Corpuscular Hemoglobin 29.6 pg (28.0-33.3); Mean Corpuscular Volume 91.2 fL (83.0-100.0); Mean Platelet Volume 10.7 fL (9.4-12.4); Platelet Count 140 K/mcL (140-400); Red Blood Count 3.41 M/mcL (4.19-5.50); Red Cell Distribution Width 14.9 % (11.5-14.5)
[2018-12-10 07:30] LABS: Albumin 3.4 g/dL (3.5-5.7); Magnesium 2.2 mg/dL (1.6-2.6); Phosphorous 3.7 mg/dL (2.7-4.5)
[2018-12-10 07:35] LABS: Calcium 9.1 mg/dL (8.6-10.3); Potassium 4.9 mEq/L (3.5-5.1)
[2018-12-10 08:28] LABS: Lymphocytes # 0.5 K/mcL (0.6-4.6); Monocytes # 1.4 K/mcL (0.0-1.3); Neutrophils # 13.6 K/mcL (1.6-8.9)
[2018-12-10 08:29] LABS: Toxic Granulation Present (Not Present)
[2018-12-10] MEDS: cefTRIAXone 2,000 MG in Water for inj. (sterile) 20 ML 20 ML IVP SCH (08:30)
[2018-12-10] MEDS: Insulin LISPRO 300 UNITS/3 ML VIAL SQ SCH ×4 (08:30→21:09)
[2018-12-10 08:31] LABS: Anisocytosis 1+ (Not Present); Platelet Estimate Normal (Normal); Poikilocytosis 1+ (Not Present)
[2018-12-10] MEDS: predniSONE 20 MG TABLET PO SCH (08:32)
[2018-12-10] MEDS: Insulin DETEMIR 100 UNIT/ML X5UNITS SQ SCH ×2 (08:32→22:20)
[2018-12-10] MEDS: Aspirin Enteric Coated 81 MG Tablet PO SCH (08:32)
[2018-12-10] MEDS: Azithromycin 500 MG in D5% in Water 250 ML IVPB SCH (08:32)
--- NOTE | 2018-12-10 10:06 | Electrocardiograph Report ---
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
--- NOTE | 2018-12-10 11:24 | Internal Med Progress Note ---
Hospitalist Progress Note - Encounter Date of Encounter: 12/10/18 Time of Encounter: 10:15 - Subjective Interval History: Patient is awake and alert. Feels much better overall. Denies any chest pain or palpitations. Does have some cough with sputum production. No fevers or chills reported overnight. - Exam Vitals: Temp Pulse Resp BP Pulse Ox 97.7 F 87 18 146/65 98 12/10/18 07:34 12/10/18 07:34 12/10/18 07:34 12/10/18 07:34 12/10/18 07:34 Exam: General: Patient is alert, mild distress, oriented x 3 ENT: Mucous membranes moist Respiratory: Decreased breath sounds at both bases. Prolonged expiratory phase. End expiratory wheezing. Cardiovascular: Regular rate and rhythm. s1 and s2 normal No clicks, rubs, gallops, or murmurs. No pedal edema Abdomen: Abdomen is soft, nontender. Bowel sounds are present Musculoskeletal: Spontaneously moving all extremities Skin: warm, dry, intact. Neuro: Alert oriented x 3 normal cranial nerves, no focal deficits - Assessment and Plan (1) Sepsis Current Visit: Yes Status: Acute (2) Acute exacerbation of chronic obstructive airways disease Current Visit: Yes Status: Acute (3) Vomiting Current Visit: Yes Status: Acute (4) Syncope Current Visit: Yes Status: Acute (5) Acute kidney injury superimposed on CKD Current Visit: Yes Status: Acute (6) Obesity Current Visit: No Status: Chronic (7) UTI (urinary tract infection) Current Visit: Yes Status: Acute (8) Elevated d-dimer Current Visit: Yes Status: Acute (9) Type 2 diabetes mellitus Current Visit: Yes Status: Chronic (10) Avascular necrosis Current Visit: No Status: Chronic (11) GERD (gastroesophageal reflux disease) Current Visit: No Status: Chronic (12) DVT prophylaxis Current Visit: Yes Status: Acute - Summary of Assessment and Plan Summary of Assessment and Plan: Patient being treated for sepsis most likely from UTI with COPD exacerbation/pneumonia along with acute kidney injury on chronic kidney disease. Per calcitonin levels are elevated. Continue current antibiotics. WBC count trending down. Plans to transition to oral antibiotics tomorrow. We will send sputum for culture. Nephrology following. Continue IV hydration. Urine cultures show no growth. Creatinine levels are improving. Continue to monitor renal function and avoid nephrotoxic agents. Venous Dopplers did not show any DVT. IV Heparin has been stopped. On subcutaneous heparin for DVT prophylaxis. Improved blood sugar controlled. Continue current insulin regimen. Continue bronchodilators for COPD exacerbation. Moderate risk for complications. - Time Spent with Patient Total time spent is greater than 50% in coordination of care (as documented) at patient's floor/unit and/or counseling patient: Internal Medicine: Result - Labs CBC & Chem 7: 12/10/18 06:06 12/10/18 06:06 Labs: Short CBC 12/10/18 Range/Units 06:06 WBC 15.5 H (4.3-11.1) K/mcL Hgb 10.1 L (12.9-16.9) g/dL Hct 31.1 L (37.5-50.1) % Plt Count 140 (140-400) K/mcL Neutrophils # 13.6 H (1.6-8.9) K/mcL BMP 12/10/18 06:06 Sodium 139 Potassium 4.9 Chloride 106 Carbon Dioxide 25 BUN 48 H Creatinine 2.70 H Glucose 202 H Calcium 9.1 Liver Function 12/10/18 Range/Units 06:06 Albumin 3.4 L (3.5-5.7) g/dL - ABG Interpretation ABG results: PT/INR, D-dimer PT 14.3 Seconds (9.4-12.1) H 12/09/18 01:07 5591 ng/mLFEU (0-500) H 12/08/18 18:30 - Impressions Impressions Echocardiogram 12/08/18 22:43 Impressions: LVEF 60-65%. Mild left ventricular diastolic dysfunction. No LVOT obstruction. Normal right ventricular structure and function. Aortic valve not well visualized. Moderate-severe aortic stenosis by Doppler. Mild mitral regurgitation. Mild tricuspid regurgitation. Mild pulmonary hypertension. Left Ventricular Wall Motion: Rest Echo Findings All wall segments showed normal motion. Findings: Study Quality * Technically adequate exam. ECG Findings * Normal sinus rhythm. Left Ventricle * LVEF 60-65%. * Normal LV chamber size, wall thickness and function. * Mild left ventricular diastolic dysfunction. * No LVOT obstruction. Right Ventricle * Normal right ventricular structure and function. Left Atrium * Moderately dilated left atrium. Right Atrium * Normal right atrial size. Aortic Valve * No aortic regurgitation. * Aortic valve not well visualized. * Moderate-severe aortic stenosis. Mitral Valve * Normal mitral valve structure. * No mitral stenosis. * Mild mitral regurgitation. Tricuspid Valve * Normal tricuspid valve structure. * Mild tricuspid regurgitation. * Estimated RA pressure is 8 mmHg. * Estimated RVSP is 43 mmHg. * Mild pulmonary hypertension. Pulmonic Valve * Pulmonic valve is not well visualized. * No pulmonic stenosis. * No pulmonic regurgitation. Pulmonary Artery * Pulmonary artery not well visualized. Aorta * Not well visualized. Pericardium * There is no pericardial effusion present. Interatrial Septum * No evidence of PFO by color Doppler. IVC * The IVC is dilated. * > 50% respiratory change Retroperitoneum Ultrasound 12/10/18 09:00 IMPRESSION: Atrophic right kidney. Otherwise unremarkable exam D/ / Eric Babb MD / Eric Babb MD Interpreting Provider: Eric Babb MD Consult Discharge Plan - Plan Referrals: NONE,PCP [Primary Care Provider] - (1) Sepsis Qualifiers: Sepsis type: sepsis due to unspecified organism Qualified Code(s): A41.9 - Sepsis, unspecified organism (3) Vomiting Qualifiers: Vomiting type: unspecified Vomiting Intractability: non-intractable Nausea presence: with nausea Qualified Code(s): R11.2 - Nausea with vomiting, unspecified (4) Syncope Qualifiers: Syncope type: unspecified Qualified Code(s): R55 - Syncope and collapse (6) Obesity Qualifiers: Obesity type: due to excess calories Obesity classification: adult class 1 (BMI 30 - 34.9) Serious obesity comorbidity presence: with serious comorbidity Body mass index: BMI 31.0-31.9 Qualified Code(s): E66.09 - Other obesity due to excess calories; Z68.31 - Body mass index (BMI) 31.0-31.9, adult (7) UTI (urinary tract infection) Qualifiers: Urinary tract infection type: acute cystitis Hematuria presence: without h ematuria Qualified Code(s): N30.00 - Acute cystitis without hematuria (9) Type 2 diabetes mellitus Qualifiers: Diabetes mellitus 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
--- NOTE | 2018-12-10 12:33 | Nephrology Progress Note ---
Date of Encounter: 12/10/18 Time of Encounter: 08:50 - Assessment and Plan (1) Acute kidney injury superimposed on CKD Current Visit: Yes Status: Acute Nonoliguric NEVILLE on CKD stage IIIb-IV with baseline GFR in low 30s to upper 20s. FeNa 0.1%. Pre-renal pathology due to sepsis. Patient's renal function has been improving on IVF. Creatinine improved from 2.99 down to 2.70. GFR improved from 21 to 23. Slightly low UOP of 0.3 cc/kg/hr. - Given low UOP, would like to increase fluid rate from 75 mls/hr to 100 mls/hr. However given patient is hypertensive, will switch from NS to 0.45% NaCl. In addition, since patient has some pitting edema in the LE, will restrict fluid to 1 L only. - Avoid nephrotoxins. - Renal dose antibiotics and other medications. (2) CKD (chronic kidney disease), stage III Current Visit: Yes Status: Chronic Has baseline CKD stage IIIB to stage IV based upon a review his outpatient GFR's for non-. Abdominal CT was right renal atrophy, possibly due to renal artery stenosis. Renal u/s shows right kidney measures 8.3 cm in length and the left kidney measures 11.9 cm in length. - Will order Renal Artery Duplex imaging to assess for renal artery stenosis. (3) Diabetic renal disease Current Visit: Yes Status: Chronic Presumed etiology of his CKD is primarily diabetic, as well as hypertensive and obesity. Qualifiers: Diabetes mellitus type: type 2 Qualified Code(s): E11.21 - Type 2 diabetes mellitus with diabetic nephropathy (4) Acute exacerbation of chronic obstructive airways disease Current Visit: Yes Status: Acute (5) Hyponatremia Current Visit: Yes Status: Acute Mild hypovolemic hyponatremia. Resolved at this point. Sodium level normal at 139 (at 133 yesterday). - Will continue IVF for hypovolemia with hypotonic NaCl 1 L for now. Subjective Interval history: When seen today, the patient denied any chest pain or SOB. He denied any nausea or vomiting. Denied any fever. Denied any abdominal pain. Denied any dysuria or gross hematuria. Objective - Vital Signs Vital signs: Vital Signs Temp Pulse Resp BP Pulse Ox 12/10/18 11:28 98 F 84 18 172/82 97 12/10/18 07:34 97.7 F 87 18 146/65 98 12/10/18 03:56 98 F 98 20 153/58 99 12/10/18 00:01 97.3 F L 101 14 157/77 96 12/09/18 20:37 98.1 F 87 18 147/70 97 12/09/18 15:58 98.0 F 91 15 147/79 96 Intake and Output 12/09/18 12/10/18 12/10/18 23:59 07:59 15:59 Intake Total 730.6 / 2513.0 1340 / 2100 760 / 2100 Balance 730.6 / 1813.0 1340 / 2100 760 / 2100 Intake: IV Fluids 130.6 / 1673.0 1000 / 1520 520 / 1520 0.9 % Sodium Chloride 1,000 ML 1000 / 1000 @ 75 mls/hr IVC .[id number] [facility] Rx #:[id number] Heparin 25,000 UNIT/250 ML D5W 130.6 / 153.0 25,000 unit In 250 ml @ 10.9 UNIT/KG/HR 10.083 mls/hr IVC . Q24H [facility] Rx#:[id number] Rocephin 2,000 MG In Water for inj. (sterile) 20 ML @ 600 mls/ hr IVP Q24H [facility] Rx#:[id number] Zithromax 500 mg In Dextrose 5% 500 / 500 250 ML @ 252 mls/hr IVPB Q24H [facility] Rx#:[id number] Oral 600 / 840 340 / 580 240 / 580 Other: Meal Dinner Breakfast Percent of Meal Consumed 100% 100% # Voids 1 1 # Bowel Movements 1 Weight 95.2 kg Blood Glucose* 231 173 150 Patient Weight 12/10/18 23:59 Weight 95.2 kg - General Appearance General appearance: Present: appears started age, obese EENT: Present: mucous membranes moist Neck: Present: no JVD Respiratory: Present: clear Cardiology: Present: no murmurs, no rub, no gallops, edema (+1 b/l pitting pedal edema), regular rate, regular rhythm, normal S1, normal S2 Gastrointestinal: Present: normoactive bowel sounds, no tenderness, no guarding, no organomegaly, no masses Integumentary: Present: warm and dry Neurologic: Present: no focal deficit, alert and oriented x3 Musculoskeletal: Present: no deformities, no erythema, no cyanosis, no clubbing Psychiatric: Present: mood/affect appropriate, cooperative - Lab 12/10/18 06:06 12/10/18 06:06 Most recent lab results 12/10/18 12/10/18 12/10/18 06:06 06:06 08:26 Calcium 9.1 Phosphorus 3.7 Magnesium 2.2 Urine Sodium 71.7 Consult Discharge Plan - Plan Referrals: NONE,PCP [Primary Care Provider] -
[2018-12-10] MEDS: Latanoprost 2.5 ML BOTTLE BOTH EYES SCH (20:40)
[2018-12-11] MEDS: *HR* Heparin 5,000 UNIT/ML VIAL SQ SCH (05:18)
[2018-12-11 07:22] VITALS: BP 166/76
[2018-12-11] MEDS: Azithromycin 500 MG in D5% in Water 250 ML IVPB SCH (08:42)
[2018-12-11] MEDS: Insulin LISPRO 300 UNITS/3 ML VIAL SQ SCH ×2 (08:43→12:30)
[2018-12-11] MEDS: cefTRIAXone 2,000 MG in Water for inj. (sterile) 20 ML 20 ML IVP SCH (08:43)
[2018-12-11] MEDS: Aspirin Enteric Coated 81 MG Tablet PO SCH (08:45)
[2018-12-11] MEDS: predniSONE 20 MG TABLET PO SCH (08:46)
[2018-12-11] MEDS: Insulin DETEMIR 100 UNIT/ML X5UNITS SQ SCH (08:46)
[2018-12-11 09:08] LABS: Basophils % 0.2 %; Eosinophils # 0.1 K/mcL (0.0-0.6); Eosinophils % 0.6 %; Hematocrit 32.1 % (37.5-50.1); Hemoglobin 10.4 g/dL (12.9-16.9); Immature Granulocytes % 1.1 % (0-4); Lymphocytes # 1.5 K/mcL (0.6-4.6); Lymphocytes % 18.6 %; Mean Corpuscular HGB Conc 32.4 g/dL (31.6-35.5); Mean Corpuscular Hemoglobin 29.5 pg (28.0-33.3); Mean Corpuscular Volume 91.2 fL (83.0-100.0); Mean Platelet Volume 10.6 fL (9.4-12.4); Monocytes # 1.1 K/mcL (0.0-1.3); Monocytes % 13.4 %; Neutrophils # 5.4 K/mcL (1.6-8.9); Platelet Count 146 K/mcL (140-400); Red Blood Count 3.52 M/mcL (4.19-5.50); Red Cell Distribution Width 15.1 % (11.5-14.5); Segmented Neutrophils % 66.1 %
[2018-12-11 09:27] LABS: Calcium 9.3 mg/dL (8.6-10.3); Potassium 4.5 mEq/L (3.5-5.1)
--- NOTE | 2018-12-11 11:04 | Electrocardiograph Report ---
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
--- NOTE | 2018-12-11 11:50 | Nephrology Progress Note ---
Date of Encounter: 12/11/18 Time of Encounter: 11:15 - Assessment and Plan (1) Acute kidney injury superimposed on CKD Current Visit: Yes Status: Acute Nonoliguric acute kidney injury on chronic kidney disease stage IIIb-IV, is improving. As discussed with the hospitalist, it is okay to discharge at this time. I will ask my team to help schedule him a sooner follow-up appointment, as I typically see him in [place], [place]. Nonoliguric NEVILLE on CKD stage IIIb-IV with baseline GFR in low 30s to upper 20s. Recommend continuing IVF today. No indications for BLADDER TIER. Continue to follow a renal protective strategy, and thank you for consulting the [facility] group. I reviewed his outpatient progress notes and inpatient progress notes; I also reviewed his labs and vital sign trends, plus imaging and provided in depth medical decision making and complex evaluation and management Will continue to follow with you. (2) CKD (chronic kidney disease), stage III Current Visit: Yes Status: Chronic (3) Diabetic renal disease Current Visit: Yes Status: Chronic Qualifiers: Diabetes mellitus type: type 2 Qualified Code(s): E11.21 - Type 2 diabetes mellitus with diabetic nephropathy (4) Acute exacerbation of chronic obstructive airways disease Current Visit: Yes Status: Acute (5) Hyponatremia Current Visit: Yes Status: Acute Objective - Vital Signs Vital signs: Vital Signs Temp Pulse Resp BP Pulse Ox 12/11/18 07:21 97.4 F L 85 16 166/76 97 12/11/18 05:12 97.8 F 92 14 170/77 98 12/11/18 00:36 97.8 F 85 14 144/72 99 12/10/18 23:40 80 138/60 12/10/18 23:25 80 146/55 12/10/18 23:10 84 152/54 12/10/18 23:02 88 158/62 12/10/18 22:40 86 189/85 12/10/18 21:04 97.6 F 85 14 188/96 99 12/10/18 20:53 100 12/10/18 16:29 97.6 F 86 17 175/83 98 Intake and Output 12/10/18 12/11/18 12/11/18 23:59 07:59 15:59 Intake Total 840 / 3300 1760 / 2000 240 / 2000 Output Total 650 / 650 900 / 900 Balance 190 / 2650 860 / 1100 240 / 1100 Intake: IV Fluids 1700 / 1700 0.45% Sodium Chloride 1000 Ml 1000 / 1000 1000 Ml 1,000 ML @ 100 mls/hr IVC .Q10H MARY ANN Rx#:[id number] 0.9 % Sodium Chloride 1,000 ML 700 / 700 @ 75 mls/hr IVC .[id number] MARY ANN Rx #:[id number] Oral 840 / 1780 60 / 300 240 / 300 Output: Urine 650 / 650 900 / 900 Other: Meal Dinner Breakfast Percent of Meal Consumed 100% 100% Weight 98 kg Blood Glucose* 176 201 138 Patient Weight 12/11/18 23:59 Weight 98 kg - Lab 12/11/18 08:53 12/11/18 08:53 Most recent lab results 12/11/18 08:53 Calcium 9.3 Consult Discharge Plan - Plan Referrals: NONE,PCP [Primary Care Provider] -
--- NOTE | 2018-12-11 12:33 | Discharge Summary ---
- NOTES TO OUTPATIENT PROVIDER Notes to Outpatient Provider: Patient hospitalized here for pneumonia/COPD exacerbation and acute kidney injury. Treated with IV fluids and antibiotics. Clinically getting better. He will be discharged home today and will follow up with nephrology as outpatient. He will have his basic panel checked prior to follow up with PCP Orders not resulted at time of discharge: Pending orders 12/08/18 21:59 Culture,Blood [BC] Stat 12/08/18 22:48 Culture,Sputum with Gram Stain [RM] Routine Date of Encounter: 12/11/18 Time of Encounter: 12:28 - Discharge Diagnosis (1) Sepsis Priority: Primary Status: Acute Qualifiers: Sepsis type: sepsis due to unspecified organism Qualified Code(s): A41.9 - Sepsis, unspecified organism (2) Acute exacerbation of chronic obstructive airways disease Priority: Secondary Status: Acute (3) Vomiting Priority: Secondary Status: Acute Qualifiers: Vomiting type: unspecified Vomiting Intractability: non-intractable Nausea presence: with nausea Qualified Code(s): R11.2 - Nausea with vomiting, unspecified (4) Syncope Priority: Secondary Status: Acute Qualifiers: Syncope type: unspecified Qualified Code(s): R55 - Syncope and collapse (5) Acute kidney injury superimposed on CKD Priority: Secondary Status: Acute (6) Obesity Priority: Secondary Status: Chronic Qualifiers: Obesity type: due to excess calories Obesity classification: adult class 1 (BMI 30 - 34.9) Serious obesity comorbidity presence: with serious comorbidity Body mass index: BMI 31.0-31.9 Qualified Code(s): E66.09 - Other obesity due to excess calories; Z68.31 - Body mass index (BMI) 31.0-31.9, adult (7) UTI (urinary tract infection) Priority: Secondary Status: Acute Qualifiers: Urinary tract infection type: acute cystitis Hematuria presence: without hematuria Qualified Code(s): N30.00 - Acute cystitis without hematuria (8) Elevated d-dimer Priority: Secondary Status: Acute (9) Type 2 diabetes mellitus Priority: Secondary Status: Chronic Qualifiers: Diabetes mellitus [facility] insulin use: without terminal gauger supervisor use Diabetes mellitus complication status: with hyperglycemia Qualified Code(s): E11.65 - Type 2 diabetes mellitus with hyperglycemia (10) Avascular necrosis Priority: Secondary Status: Chronic (11) GERD (gastroesophageal reflux disease) Priority: Secondary Status: Chronic Qualifiers: Esophagitis presence: esophagitis presence not specified Qualified Code(s): K21.9 - Gastro-esophageal reflux disease without esophagitis (12) DVT prophylaxis Priority: Secondary Status: Acute Hospital course: Mr. Nicolas is a 73 year old male patient with history of COPD and chronic respiratory failure on 3 L home oxygen, hyperlipidemia, gastroesophageal reflux disease and chronic kidney disease stage III was hospitalized here after an e pisode of syncope along with associated shortness of breath. He was found to have acute kidney injury and also was diagnosed with sepsis from pneumonia and COPD exacerbation. He was treated with IV fluids, IV antibiotics along with steroids and bronchodilators. His symptoms have significantly improved since admission and is now doing much better. His renal function is improving towards his baseline. He is now tolerating oral diet well. He is back on his usual oxygen. His d-dimer was elevated and he underwent venous Dopplers which did not show any DVT. He was initially started on IV heparin drip. This has since been stopped. CT of the abdomen and pelvis showed urinary bladder thickening which could be from cystitis or chronic bladder outlet obstruction. Patient has been having good urine output. At this time, he is clinically stable to be discharged home. He will follow up with nephrology and his PCP. We will continue to hold his Lasix and lisinopril till he sees his primary care provider and he will have his basic panel checked prior to this visit to PCP. Discharge discussed with: patient - Time Spent with Patient Total time spent providing and/or coordinating discharge services: Time spent: Greater than 30 minutes (40 min) - Discharge Medications Prescriptions: New GuaiFENesin/Dextromethorphan [[facility]vs Tussin Dm Max Liquid] 237 ml PO QID PRN #1 liquid PRN Reason: Cough predniSONE [PredniSONE] 40 mg PO DAILY #6 tablet Azithromycin [Zithromax] 250 mg PO DAILY #6 tablet Cefdinir [Omnicef] 300 mg PO BID #10 capsule amLODIPine [Norvasc] 5 mg PO DAILY #30 tablet Continued Aspirin [Lo-Dose Aspirin EC] 81 mg PO DAILY Omeprazole [PriLOSEC] 20 mg PO DAILY Insulin LISPRO [Humalog Kwikpen U-100] 15 unit SQ TIDAC Montelukast [Singulair] 10 mg PO DAILY Latanoprost [Xalatan] 1 drop BOTH EYES HS Insulin Glargine,Hum.rec.anlog [Lantus Solostar] 20 units SQ HS Simvastatin 80 mg PO HS Discontinued Lisinopril [Zestril] 40 mg PO DAILY hydroCHLOROthiazide [Hydrochlorothiazide] 25 mg PO DAILY Furosemide [Lasix] 40 mg PO QAM Furosemide [Lasix] 20 mg PO QPM Home Medications: Aspirin [Lo-Dose Aspirin EC] 81 mg PO DAILY 12/08/18 [History] Insulin Glargine,Hum.rec.anlog [Lantus Solostar] 20 units SQ HS 12/08/18 [History] Insulin LISPRO [Humalog Kwikpen U-100] 15 unit SQ TIDAC 12/08/18 [History] Latanoprost [Xalatan] 1 drop BOTH EYES HS 12/08/18 [History] Montelukast [Singulair] 10 mg PO DAILY 12/08/18 [History] Omeprazole [PriLOSEC] 20 mg PO DAILY 12/08/18 [History] Simvastatin 80 mg PO HS 12/08/18 [History] Azithromycin [Zithromax] 250 mg PO DAILY #6 tablet 12/11/18 [Rx] Cefdinir [Omnicef] 300 mg PO BID #10 capsule 12/11/18 [Rx] GuaiFENesin/Dextromethorphan [Cvs Tussin Dm Max Liquid] 237 ml PO QID PRN #1 liquid 12/11/18 [Rx] amLODIPine [Norvasc] 5 mg PO DAILY #30 tablet 12/11/18 [Rx] predniSONE [PredniSONE] 40 mg PO DAILY #6 tablet 12/11/18 [Rx] Allergies/Adverse Reactions: Allergy/AdvReac Type Severity Reaction Status Date / Time No Known Allergies Allergy Verified 12/08/18 22:07 Date of admission: 12/08/18 23:31 Primary care physician: PCP NONE Consults: 12/08/18 23:06 Consult to Occupational Therapy [CONS] Routine Comment: Evaluate, develop and implement POC Reason for Consult: weakness/falls Does patient have active BEDREST order?: No Is patient medically & hemodynamically stable?: Yes Patient assessed for mobility or mobilized this visit?: No Consult to Physical Therapy [CONS] Routine Comment: Evaluate, develop and implement POC Reason for Consult: weakness/falls Does patient have active BEDREST order?: No Is patient medically & hemodynamically stable?: Yes Patient assessed for mobility or mobilized this visit?: No 12/08/18 23:25 Consult to Nephrology [CONS] Routine Consulting Provider: Kidney Estella/NANCY/GILL/JEAN Reason for Consult: known to dr Doll, NEVILLE on CKD, urine studies pending, retroperitonel US pending, renal aa stenosis on CT Call Completed: No Consult to Milking System Installer [CONS] Routine Reason for SW Consult: diifuclty with ADL, lives alone Discharging clinician: Krystina Tello Anticipated date of discharge: 12/11/18 - Constitutional Vitals: Temp Pulse Resp BP Pulse Ox 97.4 F L 85 16 166/76 97 12/11/18 07:21 12/11/18 07:21 12/11/18 07:21 12/11/18 07:21 12/11/18 07:21 General appearance: Present: A&O X 3, pleasant, obese, answers questions appropriately Exam: General: Patient is alert, no acute distress, oriented x 3 ENT: Mucous membranes moist Respiratory: Prolonged expiratory phase. Mild wheezing Cardiovascular: Regular rate and rhythm. s1 and s2 normal No clicks, rubs, gallops, or murmurs. No pedal edema Abdomen: Abdomen is soft, nontender. Bowel sounds are present Musculoskeletal: Spontaneously moving all extremities Skin: warm, dry, intact. Neuro: Alert oriented x 3 normal cranial nerves, no focal deficits - Patient Status Disposition: Home Health Service Condition: Fair Functional capacity at discharge: uses cane/walker Overall status at discharge: patient is progressing back to baseline - Ambulatory Orders Ambulatory Orders: Basic Metabolic Panel [CHEM] Time Frame: 1 Week, Facility: [facility], Location: Lab - Discharge Instructions Instructions: Chronic Obstructive Pulmonary Disease (DC), Diabetes Mellitus Type 2 in Adults (DC) Follow Up With: NONE,PCP [Primary Care Provider] - (in 1 week) Logan Doll DO [Partnered Physician] - (in 1 week) - Diet and Activity Activity: as per physical therapy Diet: diabetic diet, low fat, low cholesterol, low salt diet, other (renal)
--- NOTE | 2018-12-11 15:04 | Physician Discharge Referral ---
Home Health/Hosp Referral Info Transfer to: Home Health Provider in Charge Post Discharge: PCP - Diagnosis (1) Sepsis Priority: Primary Status: Acute (2) Acute exacerbation of chronic obstructive airways disease Priority: Secondary Status: Acute (3) Vomiting Priority: Secondary Status: Acute (4) Syncope Priority: Secondary Status: Acute (5) Acute kidney injury superimposed on CKD Priority: Secondary Status: Acute (6) Obesity Priority: Secondary Status: Chronic (7) UTI (urinary tract infection) Priority: Secondary Status: Acute (8) Elevated d-dimer Priority: Secondary Status: Acute (9) Type 2 diabetes mellitus Priority: Secondary Status: Chronic (10) Avascular necrosis Priority: Secondary Status: Chronic (11) GERD (gastroesophageal reflux disease) Priority: Secondary Status: Chronic (12) DVT prophylaxis Priority: Secondary Status: Acute - Respiratory Orders Oxygen / L per min (2-3) Smoking Cessation: Smoking cessation has been advised. For more information, call the [place] Tobacco Quit Line at 2-670-CMCF-NOW. - Diet/Nutrition Diet/Nutrition Orders: Cardiac, No Concentrated Sweets (diabetic) - Activity Activity Orders: Walker - Services Needed Following services are medically necessary services: Nursing, Physical Therapy, Occupational Therapy - Transfer Medications Prescriptions: GuaiFENesin/Dextromethorphan [Cvs Tussin Dm Max Liquid] 237 ml PO QID PRN #1 liquid PRN Reason: Cough amLODIPine [Norvasc] 5 mg PO DAILY #30 tablet Cefdinir [Omnicef] 300 mg PO BID #10 capsule predniSONE [PredniSONE] 40 mg PO DAILY #6 tablet Azithromycin [Zithromax] 250 mg PO DAILY #6 tablet Home Medications: Aspirin [Lo-Dose Aspirin EC] 81 mg PO DAILY 12/08/18 [History] Insulin Glargine,Hum.rec.anlog [Lantus Solostar] 20 units SQ HS 12/08/18 [History] Insulin LISPRO [Humalog Kwikpen U-100] 15 unit SQ TIDAC 12/08/18 [History] Latanoprost [Xalatan] 1 drop BOTH EYES HS 12/08/18 [History] Montelukast [Singulair] 10 mg PO DAILY 12/08/18 [History] Omeprazole [PriLOSEC] 20 mg PO DAILY 12/08/18 [History] Simvastatin 80 mg PO HS 12/08/18 [History] Azithromycin [Zithromax] 250 mg PO DAILY #6 tablet 12/11/18 [Rx] Cefdinir [Omnicef] 300 mg PO BID #10 capsule 12/11/18 [Rx] GuaiFENesin/Dextromethorphan [Cvs Tussin Dm Max Liquid] 237 ml PO QID PRN #1 liquid 12/11/18 [Rx] amLODIPine [Norvasc] 5 mg PO DAILY #30 tablet 12/11/18 [Rx] predniSONE [PredniSONE] 40 mg PO DAILY #6 tablet 12/11/18 [Rx] Allergies/Adverse Reactions: Allergy/AdvReac Type Severity Reaction Status Date / Time No Known Allergies Allergy Verified 12/08/18 22:07 Certification: Further, I certify that my clinical findings support that this patient is homebound (i.e. absences from home require considerable and taxing effort and are for medical reasons or [employer]on services or infrequently or short duration when for other reasons) because: Homebound Reason: Patient requires assistance of a person or device to safely leave home Attestation: My signature below is to certify that this patient is under my care and that I, or nurse practitioner, or a physician's assistant spa director working with me, has a [id number] encounter with this patient.
== END 2018-12-11 15:56 | disposition home health service (06) | DRG 871 ==
LOC: 2NENU 17:24 → EMEROOARM 17:24 → 2NENU 23:16 → SUATTDRO 23:31
PROVIDERS: ADMIT Family Medicine; ATTEND Internal Medicine

== ENCOUNTER 2019-08-16 06:28 | Observation (INO) ==
[2019-08-16] MEDS ORDERED: Acetaminophen 325 MG TABLET PO PRN (09:28)
[2019-08-16] MEDS ORDERED: Naloxone 0.4 MG/ML INJ IVP PRN (09:28)
[2019-08-16] MEDS ORDERED: Ipratropium/Albuterol Neb 3 ML IH PRN (10:06)
[2019-08-16] MEDS: Ampicillin/Sulbactam 3,000 MG in 0.9 % Sodium Chloride Mini Bag 100 ML IVPB SCH ×2 (13:15→18:31)
[2019-08-16] MEDS: *HR* HYDROcodone/Acet 5/325 mg TABLET PO PRN (13:15)
[2019-08-16] MEDS: Ringers Solution, Lactated 1,000 ML IVC SCH (13:16)
[2019-08-16] MEDS ORDERED: Isovue-370 500 ML BOTTLE IVP ONE (14:08)
[2019-08-16] MEDS: *HR* Heparin 5,000 UNIT/ML VIAL SQ SCH (18:31)
[2019-08-16] MEDS ORDERED: Dextrose Gel 15 GM/37.5 ML TUBE PO PRN ×2 (20:24)
[2019-08-16] MEDS ORDERED: D5% in Water 1,000 ML IVC PRN (20:24)
[2019-08-16] MEDS ORDERED: *HR* Dextrose 50 % in Water (Syg) 50 ML SYRINGE IVP PRN (20:24)
[2019-08-16] MEDS: Dorzolamide OPTH 10 ML BOTTLE BOTH EYES SCH (21:42)
[2019-08-16] MEDS: Latanoprost 2.5 ML BOTTLE BOTH EYES SCH (21:42)
[2019-08-16] MEDS: Insulin LISPRO 300 UNITS/3 ML VIAL SQ SCH ×2 (21:43)
[2019-08-16] MEDS: Budesonide/Formoterol 160/4.5 1 PUFF INH IH SCH (21:51)
[2019-08-17] MEDS: Ampicillin/Sulbactam 3,000 MG in 0.9 % Sodium Chloride Mini Bag 100 ML IVPB SCH ×4 (00:52→19:59)
[2019-08-17] MEDS: *HR* Heparin 5,000 UNIT/ML VIAL SQ SCH (05:49)
[2019-08-17] MEDS: Ringers Solution, Lactated 1,000 ML IVC SCH ×2 (06:04→21:09)
[2019-08-17 06:59] LABS: Bilirubin,Urine Negative (Negative); Blood,Urine Negative (Negative); Clarity,Urine Clear (Clear); Color,Urine Yellow (Yellow); Glucose,Urine (UA) Normal (Normal); Ketones,Urine Negative (Negative); Leukocyte Esterase,Urine Negative (Negative); Nitrite,Urine Negative (Negative); Protein,Urine 30 mg/dL (Neg-Trace); Specific Gravity,Urine 1.028 (1.010-1.025); Urobilinogen,Urine Normal (Normal)
[2019-08-17 07:02] LABS: Bacteria,Urine None Seen per hpf (None-Few); Hyaline Casts,Urine None Seen per lpf (None-Few); Squamous Epithelial Cell,Urine None Seen per lpf (None-Few); WBC,Urine 0-3 per hpf (0-3)
[2019-08-17 07:21] LABS: Basophils # 0.1 K/mcL (0.0-0.2); Basophils % 0.7 %; Eosinophils # 0.2 K/mcL (0.0-0.6); Eosinophils % 3.3 %; Hematocrit 26.8 % (37.5-50.1); Hemoglobin 9.2 g/dL (12.9-16.9); Immature Granulocytes % 1.4 % (0-4); Lymphocytes # 0.9 K/mcL (0.6-4.6); Lymphocytes % 13.4 %; Mean Corpuscular HGB Conc 34.3 g/dL (31.6-35.5); Mean Corpuscular Hemoglobin 29.6 pg (28.0-33.3); Mean Corpuscular Volume 86.2 fL (83.0-100.0); Mean Platelet Volume 12.7 fL (9.4-12.4); Monocytes # 0.7 K/mcL (0.0-1.3); Monocytes % 9.8 %; Platelet Count 216 K/mcL (140-400); Red Blood Count 3.11 M/mcL (4.19-5.50); Red Cell Distribution Width 17.2 % (11.5-14.5); Segmented Neutrophils % 71.4 %
[2019-08-17 07:39] LABS: % Iron Saturation 14 % (20-55); Iron 34 mcg/dL (65-175); Transferrin 170 mg/dL (203-362)
[2019-08-17 07:43] LABS: Calcium 8.8 mg/dL (8.6-10.3); Potassium 4.5 mEq/L (3.5-5.1)
[2019-08-17] MEDS: Budesonide/Formoterol 160/4.5 1 PUFF INH IH SCH ×2 (07:45→19:42)
[2019-08-17] MEDS: Insulin LISPRO 300 UNITS/3 ML VIAL SQ SCH ×4 (08:00→23:08)
[2019-08-17] MEDS: Aspirin Enteric Coated 81 MG Tablet PO SCH (09:02)
[2019-08-17] MEDS: carvediloL 6.25 MG TABLET PO SCH (09:02)
[2019-08-17] MEDS: predniSONE 5 MG TABLET PO SCH (09:03)
[2019-08-17] MEDS: Cholecalciferol (D-3) 1,000 UNIT (25MCG) TABLET PO SCH (09:03)
[2019-08-17] MEDS: amLODIPine 5 MG TABLET PO SCH (09:03)
[2019-08-17] MEDS: Dorzolamide OPTH 10 ML BOTTLE BOTH EYES SCH ×2 (09:04→22:20)
[2019-08-17] MEDS: *HR* HYDROcodone/Acet 5/325 mg TABLET PO PRN (16:32)
[2019-08-17] MEDS: Latanoprost 2.5 ML BOTTLE BOTH EYES SCH (22:20)
[2019-08-18 02:14] LABS: Basophils % 0.4 %; Eosinophils # 0.3 K/mcL (0.0-0.6); Eosinophils % 3.5 %; Hematocrit 28.2 % (37.5-50.1); Hemoglobin 9.4 g/dL (12.9-16.9); Immature Granulocytes % 1.1 % (0-4); Lymphocytes # 1.2 K/mcL (0.6-4.6); Lymphocytes % 16.4 %; Mean Corpuscular HGB Conc 33.3 g/dL (31.6-35.5); Mean Corpuscular Hemoglobin 29.7 pg (28.0-33.3); Mean Corpuscular Volume 89.2 fL (83.0-100.0); Mean Platelet Volume 12.2 fL (9.4-12.4); Monocytes # 0.5 K/mcL (0.0-1.3); Monocytes % 7.6 %; Neutrophils # 5.1 K/mcL (1.6-8.9); Platelet Count 195 K/mcL (140-400); Red Blood Count 3.16 M/mcL (4.19-5.50); Red Cell Distribution Width 16.8 % (11.5-14.5); White Blood Count 7.2 K/mcL (4.3-11.1)
[2019-08-18 02:33] LABS: Calcium 9.4 mg/dL (8.6-10.3); Potassium 4.7 mEq/L (3.5-5.1)
[2019-08-18] MEDS: Ampicillin/Sulbactam 3,000 MG in 0.9 % Sodium Chloride Mini Bag 100 ML IVPB SCH ×3 (03:04→12:11)
[2019-08-18] MEDS: *HR* HYDROcodone/Acet 5/325 mg TABLET PO PRN (05:43)
[2019-08-18] MEDS: Budesonide/Formoterol 160/4.5 1 PUFF INH IH SCH (07:38)
[2019-08-18] MEDS: Insulin LISPRO 300 UNITS/3 ML VIAL SQ SCH ×2 (08:40→12:03)
[2019-08-18] MEDS: predniSONE 5 MG TABLET PO SCH (10:20)
[2019-08-18] MEDS: Cholecalciferol (D-3) 1,000 UNIT (25MCG) TABLET PO SCH (10:20)
[2019-08-18] MEDS: carvediloL 6.25 MG TABLET PO SCH (10:20)
[2019-08-18] MEDS: amLODIPine 5 MG TABLET PO SCH (10:20)
[2019-08-18] MEDS: Aspirin Enteric Coated 81 MG Tablet PO SCH (10:20)
[2019-08-18] MEDS: Ringers Solution, Lactated 1,000 ML IVC SCH (10:21)
[2019-08-18] MEDS: Dorzolamide OPTH 10 ML BOTTLE BOTH EYES SCH (10:31)
[2019-08-18 11:25] VITALS: BP 166/79
== END 2019-08-18 14:15 | disposition home or self-care (01) ==
LOC: 3ANU → SUATTDRO 08:55
PROVIDERS: ADMIT Family Medicine; ATTEND Internal Medicine

== ENCOUNTER 2019-08-29 11:43 | Observation (INO) ==
[2019-08-29] MEDS ORDERED: Ipratropium/Albuterol Neb 3 ML IH ONE (12:28)
[2019-08-29 12:46] LABS: Monocytes % 9.4 %
[2019-08-29 12:48] LABS: Basophils % 0.6 %; Eosinophils # 0.1 K/mcL (0.0-0.6); Hematocrit 32.4 % (37.5-50.1); Hemoglobin 10.7 g/dL (12.9-16.9); Immature Platelets 17.8 % (1.1-6.1); Lymphocytes % 13.6 %; Mean Corpuscular Volume 87.8 fL (83.0-100.0); Monocytes # 0.7 K/mcL (0.0-1.3); Neutrophils # 5.2 K/mcL (1.6-8.9); Platelet Count 164 K/mcL (140-400); Red Blood Count 3.69 M/mcL (4.19-5.50); Red Cell Distribution Width 16.9 % (11.5-14.5); Segmented Neutrophils % 74.4 %
[2019-08-29 12:52] LABS: Albumin 4.2 g/dL (3.5-5.7); Albumin/Globulin Ratio 1.3 (1.1-2.2); Bilirubin,Total 0.6 mg/dL (0.3-1.0); Calcium 9.7 mg/dL (8.6-10.3); Globulin 3.3 g/dL (2.4-3.5); Potassium 4.7 mEq/L (3.5-5.1); Total Protein 7.5 g/dL (6.4-8.9); Troponin I 0.03 ng/mL (< 0.04)
[2019-08-29] MEDS ORDERED: 0.9 % Sodium Chloride 500 ML IVC ONE (14:17)
[2019-08-29] MEDS ORDERED: Metoclopramide 10 MG/2 ML VIAL IVP ONE (15:24)
[2019-08-29] MEDS ORDERED: Naloxone 0.4 MG/ML INJ IVP PRN (15:34)
[2019-08-29] MEDS ORDERED: D5% in Water 1,000 ML IVC PRN (15:37)
[2019-08-29] MEDS ORDERED: *HR* Dextrose 50 % in Water (Syg) 50 ML SYRINGE IVP PRN (15:37)
[2019-08-29] MEDS ORDERED: Dextrose Gel 15 GM/37.5 ML TUBE PO PRN ×2 (15:37)
[2019-08-29] MEDS ORDERED: Acetaminophen 325 MG TABLET PO PRN (15:38)
[2019-08-29] MEDS ORDERED: Ipratropium/Albuterol Neb 3 ML IH PRN (15:40)
[2019-08-29] MEDS ORDERED: D5% in 0.9% NACL 1,000 ML IVC SCH (15:45)
[2019-08-29] MEDS: Insulin LISPRO 300 UNITS/3 ML VIAL SQ SCH (16:43)
[2019-08-29] MEDS ORDERED: 0.9 % Sodium Chloride 1,000 ML IVC SCH (16:45)
[2019-08-29] MEDS: *HR* Heparin 5,000 UNIT/ML VIAL SQ SCH (17:51)
[2019-08-29] MEDS: Budesonide/Formoterol 160/4.5 1 PUFF INH IH SCH (20:41)
[2019-08-29] MEDS: Insulin DETEMIR 100 UNIT/ML X5UNITS SQ SCH (21:22)
[2019-08-29] MEDS: Dorzolamide OPTH 10 ML BOTTLE BOTH EYES SCH (21:29)
[2019-08-29] MEDS: Latanoprost 2.5 ML BOTTLE BOTH EYES SCH (21:30)
[2019-08-30 04:10] LABS: Hemoglobin 9.6 g/dL (12.9-16.9)
[2019-08-30 04:12] LABS: Hematocrit 28.6 % (37.5-50.1); Mean Corpuscular HGB Conc 33.6 g/dL (31.6-35.5); Mean Corpuscular Hemoglobin 29.2 pg (28.0-33.3); Mean Corpuscular Volume 86.9 fL (83.0-100.0); Platelet Count 150 K/mcL (140-400); Red Blood Count 3.29 M/mcL (4.19-5.50); Red Cell Distribution Width 16.8 % (11.5-14.5)
[2019-08-30 04:22] LABS: Prothrombin Time 11.8 Seconds (9.4-12.1)
[2019-08-30 04:36] LABS: Calcium 9.1 mg/dL (8.6-10.3); Magnesium 2.2 mg/dL (1.6-2.6); Phosphorous 3.6 mg/dL (2.7-4.5); Potassium 4.8 mEq/L (3.5-5.1)
[2019-08-30] MEDS: *HR* Heparin 5,000 UNIT/ML VIAL SQ SCH ×2 (05:37→15:06)
[2019-08-30] MEDS: Budesonide/Formoterol 160/4.5 1 PUFF INH IH SCH ×2 (07:44→20:19)
[2019-08-30] MEDS: Insulin LISPRO 300 UNITS/3 ML VIAL SQ SCH ×3 (07:55→17:05)
[2019-08-30] MEDS: Aspirin Enteric Coated 81 MG Tablet PO SCH (09:31)
[2019-08-30] MEDS: predniSONE 5 MG TABLET PO SCH (09:31)
[2019-08-30] MEDS: carvediloL 6.25 MG TABLET PO SCH (09:31)
[2019-08-30] MEDS: Cholecalciferol (D-3) 1,000 UNIT (25MCG) TABLET PO SCH (09:31)
[2019-08-30] MEDS: amLODIPine 5 MG TABLET PO SCH (09:31)
[2019-08-30] MEDS: Dorzolamide OPTH 10 ML BOTTLE BOTH EYES SCH ×2 (09:56→21:24)
[2019-08-30] MEDS ORDERED: 0.9 % Sodium Chloride 500 ML IVC SCH (13:30)
[2019-08-30] MEDS: predniSONE 20 MG TABLET PO SCH (15:06)
[2019-08-30] MEDS: Metoclopramide 10 MG/2 ML VIAL IVP PRN (15:18)
[2019-08-30] MEDS: Insulin DETEMIR 100 UNIT/ML X5UNITS SQ SCH (21:19)
[2019-08-30] MEDS: Latanoprost 2.5 ML BOTTLE BOTH EYES SCH (21:24)
[2019-08-31] MEDS: *HR* Heparin 5,000 UNIT/ML VIAL SQ SCH ×2 (05:33→18:07)
[2019-08-31 06:59] LABS: Calcium 9.4 mg/dL (8.6-10.3); Magnesium 2.2 mg/dL (1.6-2.6); Phosphorous 2.4 mg/dL (2.7-4.5); Potassium 5.1 mEq/L (3.5-5.1)
[2019-08-31] MEDS: Insulin LISPRO 300 UNITS/3 ML VIAL SQ SCH ×3 (09:10→18:07)
[2019-08-31] MEDS: Aspirin Enteric Coated 81 MG Tablet PO SCH (09:16)
[2019-08-31] MEDS: Cholecalciferol (D-3) 1,000 UNIT (25MCG) TABLET PO SCH (09:16)
[2019-08-31] MEDS: carvediloL 6.25 MG TABLET PO SCH (09:17)
[2019-08-31] MEDS: predniSONE 20 MG TABLET PO SCH (09:17)
[2019-08-31] MEDS: predniSONE 5 MG TABLET PO SCH (09:18)
[2019-08-31] MEDS: amLODIPine 5 MG TABLET PO SCH (09:18)
[2019-08-31] MEDS: Dorzolamide OPTH 10 ML BOTTLE BOTH EYES SCH ×2 (09:20→20:57)
[2019-08-31] MEDS: Budesonide/Formoterol 160/4.5 1 PUFF INH IH SCH ×2 (10:53→21:49)
[2019-08-31] MEDS: Metoclopramide 10 MG/2 ML VIAL IVP PRN ×2 (13:11→21:26)
[2019-08-31] MEDS: Megestrol Acetate 400 MG/10 ML UDC PO SCH (15:13)
[2019-08-31] MEDS: Insulin DETEMIR 100 UNIT/ML X5UNITS SQ SCH (20:56)
[2019-08-31] MEDS: Latanoprost 2.5 ML BOTTLE BOTH EYES SCH (20:57)
[2019-09-01] MEDS: *HR* Heparin 5,000 UNIT/ML VIAL SQ SCH (05:21)
[2019-09-01 06:34] LABS: Calcium 9.2 mg/dL (8.6-10.3); Phosphorous 2.5 mg/dL (2.7-4.5); Potassium 4.5 mEq/L (3.5-5.1)
[2019-09-01 07:31] VITALS: BP 169/64
[2019-09-01] MEDS: Budesonide/Formoterol 160/4.5 1 PUFF INH IH SCH (07:49)
[2019-09-01] MEDS: predniSONE 20 MG TABLET PO SCH (08:58)
[2019-09-01] MEDS: Metoclopramide 10 MG/2 ML VIAL IVP PRN (08:58)
[2019-09-01] MEDS: Aspirin Enteric Coated 81 MG Tablet PO SCH (08:58)
[2019-09-01] MEDS: Cholecalciferol (D-3) 1,000 UNIT (25MCG) TABLET PO SCH (08:58)
[2019-09-01] MEDS: Megestrol Acetate 400 MG/10 ML UDC PO SCH (08:58)
[2019-09-01] MEDS: amLODIPine 5 MG TABLET PO SCH (08:59)
[2019-09-01] MEDS: predniSONE 5 MG TABLET PO SCH (08:59)
[2019-09-01] MEDS: carvediloL 6.25 MG TABLET PO SCH (08:59)
[2019-09-01] MEDS: Insulin LISPRO 300 UNITS/3 ML VIAL SQ SCH (09:00)
[2019-09-01] MEDS: Dorzolamide OPTH 10 ML BOTTLE BOTH EYES SCH (09:00)
== END 2019-09-01 13:16 | disposition home health service (06) ==
LOC: EMEROOARM 11:43 → 3BNU 11:43 → SUATTDRO 15:22 → 3BNU 16:03
PROVIDERS: ADMIT Internal Medicine; ATTEND Internal Medicine

== ENCOUNTER 2019-09-04 15:41 | Inpatient (IN) ==
[2019-09-04] MEDS ORDERED: Ondansetron 4 MG/2 ML VIAL IVP ONE (15:51)
[2019-09-04 16:42] LABS: Hematocrit 32.4 % (37.5-50.1); Red Cell Distribution Width 16.4 % (11.5-14.5)
[2019-09-04 16:44] LABS: Basophils % 0.3 %; Hemoglobin 10.8 g/dL (12.9-16.9); Immature Granulocytes % 1.4 % (0-4); Immature Platelets 16.4 % (1.1-6.1); Lymphocytes # 0.4 K/mcL (0.6-4.6); Lymphocytes % 5.7 %; Mean Corpuscular HGB Conc 33.3 g/dL (31.6-35.5); Mean Corpuscular Hemoglobin 28.6 pg (28.0-33.3); Mean Corpuscular Volume 85.7 fL (83.0-100.0); Monocytes # 0.3 K/mcL (0.0-1.3); Monocytes % 4.1 %; Platelet Count 194 K/mcL (140-400); Red Blood Count 3.78 M/mcL (4.19-5.50); Segmented Neutrophils % 88.5 %; White Blood Count 7.4 K/mcL (4.3-11.1)
[2019-09-04 16:49] LABS: Neutrophils # 6.6 K/mcL (1.6-8.9)
[2019-09-04 16:50] LABS: Alanine Aminotransferase 29 Units/L (7-52); Albumin/Globulin Ratio 1.4 (1.1-2.2); Alkaline Phosphatase 49 Units/L (34-104); Aspartate Amino Transferase 18 Units/L (13-39); BUN/Creatinine Ratio 22 (6-26); Bilirubin,Direct 0.2 mg/dL (0.0-0.2); Bilirubin,Indirect 0.5 mg/dL (0.0-1.0); Bilirubin,Total 0.7 mg/dL (0.3-1.0); Blood Urea Nitrogen 44 mg/dL (8-23); Calcium 9.6 mg/dL (8.6-10.3); Carbon Dioxide 25 mEq/L (23-29); Chloride 108 mEq/L (98-107); Globulin 2.9 g/dL (2.4-3.5); Glucose 179 mg/dL (70-105); Lipase 5 Units/L (11-82); Osmolality,Calculated 308 (280-300); Potassium 4.2 mEq/L (3.5-5.1); Sodium 141 mEq/L (136-145); Total Protein 6.9 g/dL (6.4-8.9); eGFR For African Americans 41 (> 60); eGFR For Non-African Americans 34 (> 60)
[2019-09-04 17:05] LABS: Bilirubin,Urine Small (Negative); Blood,Urine Small (Negative); Clarity,Urine Clear (Clear); Color,Urine Yellow (Yellow); Glucose,Urine (UA) 100 mg/dL (Normal); Ketones,Urine Trace mg/dL (Negative); Leukocyte Esterase,Urine Trace (Negative); Nitrite,Urine Negative (Negative); PH,Urine 5.5 pH Units (5.0-8.0); Protein,Urine >=300 mg/dL (Neg-Trace); Specific Gravity,Urine >= 1.030 (1.010-1.025); Urobilinogen,Urine Normal (Normal)
[2019-09-04 17:08] LABS: Bacteria,Urine Few per hpf (None-Few); Squamous Epithelial Cell,Urine Few per lpf (None-Few); WBC,Urine 0-3 per hpf (0-3)
[2019-09-04 17:45] LABS: Troponin I < 0.03 ng/mL (< 0.04)
[2019-09-04] MEDS ORDERED: Naloxone 0.4 MG/ML INJ IVP PRN (18:56)
[2019-09-04] MEDS ORDERED: Dextrose Gel 15 GM/37.5 ML TUBE PO PRN ×2 (19:21)
[2019-09-04] MEDS ORDERED: *HR* Dextrose 50 % in Water (Syg) 50 ML SYRINGE IVP PRN (19:21)
[2019-09-04] MEDS ORDERED: D5% in Water 1,000 ML IVC PRN (19:21)
[2019-09-04 19:31] LABS: INR 1.1; Prothrombin Time 12.3 Seconds (9.4-12.1)
[2019-09-04] MEDS: 0.9 % Sodium Chloride 1,000 ML IVC SCH (21:31)
[2019-09-04] MEDS: Ondansetron 4 MG/2 ML VIAL IVP PRN (23:59)
[2019-09-05 00:42] LABS: Adenovirus F 40/41 PCR Not detected (Not detect); Astrovirus PCR Not detected (Not detect); C.difficile Toxin A/B Gene PCR Not detected (Not detect); Campylobacter by PCR Not detected (Not detect); Cryptosporidium by PCR Not detected (Not detect); Cyclospora cayetanensis PCR Not detected (Not detect); E. coli O157 by PCR Not detected (Not detect); Entamoeba histolytica PCR Not detected (Not detect); Enteroaggregative E.coli(EAEC) Not detected (Not detect); Enteropathogenic E.coli(EPEC) Not detected (Not detect); Enterotoxigenic E.coli (ETEC) Not detected (Not detect); Giardia lamblia PCR Not detected (Not detect); Norovirus GI/GII PCR Not detected (Not detect); Plesiomonas shigelloides PCR Not detected (Not detect); Rotavirus A PCR Not detected (Not detect); Salmonella PCR Not detected (Not detect); Sapovirus PCR Not detected (Not detect); Shig/EnteroinvasiveE coli EIEC Not detected (Not detect); Shigalike tox-prod E coli STEC Not detected (Not detect); Vibrio PCR Not detected (Not detect); Vibrio cholerae PCR Not detected (Not detect); Yersinia enterocolitica PCR Not detected (Not detect)
[2019-09-05] MEDS: Insulin LISPRO 300 UNITS/3 ML VIAL SQ SCH ×5 (01:11→20:53)
[2019-09-05] MEDS ORDERED: *HR* Metoprolol 5 MG/5 ML VIAL IVP ONE (01:15)
[2019-09-05] MEDS: *HR* Promethazine 25 MG/ML VIAL IVP PRN ×2 (01:50→09:08)
[2019-09-05] MEDS ORDERED: Prochlorperazine 10 MG/2 ML VIAL IVP PRN (05:59)
[2019-09-05 06:02] LABS: Basophils % 0.3 %; Lymphocytes % 7.6 %; Mean Corpuscular Hemoglobin 28.8 pg (28.0-33.3)
[2019-09-05 06:04] LABS: Eosinophils % 0.2 %; Hematocrit 31.4 % (37.5-50.1); Hemoglobin 10.7 g/dL (12.9-16.9); Immature Platelets 14.2 % (1.1-6.1); Lymphocytes # 0.7 K/mcL (0.6-4.6); Mean Corpuscular HGB Conc 34.1 g/dL (31.6-35.5); Mean Corpuscular Volume 84.4 fL (83.0-100.0); Monocytes # 0.8 K/mcL (0.0-1.3); Monocytes % 8.7 %; Neutrophils # 7.8 K/mcL (1.6-8.9); Platelet Count 203 K/mcL (140-400); Red Blood Count 3.72 M/mcL (4.19-5.50); Red Cell Distribution Width 16.4 % (11.5-14.5); Segmented Neutrophils % 82.2 %; White Blood Count 9.5 K/mcL (4.3-11.1)
[2019-09-05] MEDS: 0.9 % Sodium Chloride 1,000 ML IVC SCH (06:18)
[2019-09-05] MEDS: *HR* Heparin 5,000 UNIT/ML VIAL SQ SCH ×2 (06:19→17:50)
[2019-09-05 06:27] LABS: Albumin 3.9 g/dL (3.5-5.7); Albumin/Globulin Ratio 1.3 (1.1-2.2); Bilirubin,Total 0.7 mg/dL (0.3-1.0); Calcium 9.3 mg/dL (8.6-10.3); Globulin 2.9 g/dL (2.4-3.5); Potassium 3.9 mEq/L (3.5-5.1); Total Protein 6.8 g/dL (6.4-8.9)
[2019-09-05] MEDS: Budesonide/Formoterol 160/4.5 1 PUFF INH IH SCH ×2 (07:52→20:06)
[2019-09-05] MEDS: Pantoprazole 40 MG VIAL IVP SCH (08:55)
[2019-09-05] MEDS: cefTRIAXone 1,000 MG in Water for inj. (sterile) 10 ML IVP SCH (08:56)
[2019-09-05] MEDS ORDERED: carvediloL 6.25 MG TABLET PO SCH (09:00)
[2019-09-05] MEDS ORDERED: NON-FORMULARY MEDICATION 1 EACH EACH (Lisinopril [Zestril] 40 MG) PO SCH (09:00)
[2019-09-05] MEDS ORDERED: amLODIPine 5 MG TABLET PO SCH (09:00)
[2019-09-05] MEDS ORDERED: Lidocaine -MPF 2% 2 ML VIAL ONE (13:58)
[2019-09-05] MEDS ORDERED: *HR* Propofol 200 MG/20 ML VIAL IVP ONE (13:58)
[2019-09-05] MEDS: Dorzolamide OPTH 10 ML BOTTLE BOTH EYES SCH ×2 (14:52→20:58)
[2019-09-05] MEDS ORDERED: Acetaminophen 325 MG TABLET PO PRN (14:58)
[2019-09-05] MEDS ORDERED: Isovue-370 500 ML BOTTLE IVP ONE (17:31)
[2019-09-05] MEDS: Sucralfate 1 GM TABLET PO SCH ×2 (17:50→22:35)
[2019-09-05] MEDS: Ondansetron 4 MG/2 ML VIAL IVP PRN (20:57)
[2019-09-05] MEDS: Latanoprost 2.5 ML BOTTLE BOTH EYES SCH (22:34)
[2019-09-06 05:06] LABS: Basophils % 0.7 %; Eosinophils # 0.1 K/mcL (0.0-0.6); Eosinophils % 0.9 %; Hematocrit 28.5 % (37.5-50.1); Hemoglobin 9.6 g/dL (12.9-16.9); Immature Granulocytes % 1.2 % (0-4); Lymphocytes # 0.6 K/mcL (0.6-4.6); Lymphocytes % 9.9 %; Mean Corpuscular HGB Conc 33.7 g/dL (31.6-35.5); Mean Corpuscular Hemoglobin 28.5 pg (28.0-33.3); Mean Corpuscular Volume 84.6 fL (83.0-100.0); Monocytes # 0.5 K/mcL (0.0-1.3); Monocytes % 8.5 %; Neutrophils # 4.5 K/mcL (1.6-8.9); Platelet Count 190 K/mcL (140-400); Red Blood Count 3.37 M/mcL (4.19-5.50); Red Cell Distribution Width 16.3 % (11.5-14.5); Segmented Neutrophils % 78.8 %; White Blood Count 5.7 K/mcL (4.3-11.1)
[2019-09-06 05:27] LABS: Calcium 9.2 mg/dL (8.6-10.3); Potassium 3.6 mEq/L (3.5-5.1)
[2019-09-06] MEDS: *HR* Heparin 5,000 UNIT/ML VIAL SQ SCH ×2 (05:45→17:15)
[2019-09-06] MEDS: Insulin LISPRO 300 UNITS/3 ML VIAL SQ SCH ×4 (07:42→21:42)
[2019-09-06] MEDS: Budesonide/Formoterol 160/4.5 1 PUFF INH IH SCH ×2 (08:08→20:57)
[2019-09-06] MEDS: Sucralfate 1 GM TABLET PO SCH ×4 (11:15→21:44)
[2019-09-06] MEDS: Lisinopril 20 MG TABLET PO SCH (11:21)
[2019-09-06] MEDS: Pantoprazole 40 MG VIAL IVP SCH (11:21)
[2019-09-06] MEDS: Dorzolamide OPTH 10 ML BOTTLE BOTH EYES SCH ×2 (11:21→21:43)
[2019-09-06] MEDS: cefTRIAXone 1,000 MG in Water for inj. (sterile) 10 ML IVP SCH (11:21)
[2019-09-06] MEDS: amLODIPine 5 MG TABLET PO SCH (11:22)
[2019-09-06] MEDS: Furosemide 40 MG TABLET PO SCH (11:22)
[2019-09-06] MEDS: carvediloL 6.25 MG TABLET PO SCH (11:22)
[2019-09-06] MEDS ORDERED: 0.9 % Sodium Chloride 1,000 ML IVC SCH (11:30)
[2019-09-06] MEDS: Latanoprost 2.5 ML BOTTLE BOTH EYES SCH (21:43)
[2019-09-07] MEDS: Ondansetron 4 MG/2 ML VIAL IVP PRN ×2 (02:05→11:43)
[2019-09-07] MEDS: *HR* Heparin 5,000 UNIT/ML VIAL SQ SCH ×2 (04:36→17:47)
[2019-09-07] MEDS: *HR* Promethazine 25 MG/ML VIAL IVP PRN ×2 (04:45→16:49)
[2019-09-07] MEDS: Budesonide/Formoterol 160/4.5 1 PUFF INH IH SCH ×2 (07:11→19:14)
[2019-09-07 07:44] LABS: Immature Granulocytes % 1.5 % (0-4)
[2019-09-07 07:46] LABS: Basophils % 0.8 %; Eosinophils # 0.1 K/mcL (0.0-0.6); Eosinophils % 1.5 %; Hematocrit 27.6 % (37.5-50.1); Hemoglobin 9.2 g/dL (12.9-16.9); Lymphocytes % 12.4 %; Mean Corpuscular HGB Conc 33.3 g/dL (31.6-35.5); Mean Corpuscular Hemoglobin 28.8 pg (28.0-33.3); Mean Corpuscular Volume 86.5 fL (83.0-100.0); Monocytes # 0.5 K/mcL (0.0-1.3); Monocytes % 8.6 %; Neutrophils # 3.9 K/mcL (1.6-8.9); Platelet Count 125 K/mcL (140-400); Red Blood Count 3.19 M/mcL (4.19-5.50); Red Cell Distribution Width 16.5 % (11.5-14.5); Segmented Neutrophils % 75.2 %; White Blood Count 5.2 K/mcL (4.3-11.1)
[2019-09-07 07:47] LABS: Lymphocytes # 0.6 K/mcL (0.6-4.6)
[2019-09-07 08:02] LABS: Calcium 8.6 mg/dL (8.6-10.3); Potassium 3.6 mEq/L (3.5-5.1)
[2019-09-07] MEDS: amLODIPine 5 MG TABLET PO SCH (08:24)
[2019-09-07] MEDS: Sucralfate 1 GM TABLET PO SCH ×4 (08:24→20:13)
[2019-09-07] MEDS: carvediloL 6.25 MG TABLET PO SCH (08:24)
[2019-09-07] MEDS: Furosemide 40 MG TABLET PO SCH (08:24)
[2019-09-07] MEDS: Lisinopril 20 MG TABLET PO SCH (08:24)
[2019-09-07] MEDS: Dorzolamide OPTH 10 ML BOTTLE BOTH EYES SCH ×2 (08:25→20:12)
[2019-09-07] MEDS: cefTRIAXone 1,000 MG in Water for inj. (sterile) 10 ML IVP SCH (08:26)
[2019-09-07] MEDS: Insulin LISPRO 300 UNITS/3 ML VIAL SQ SCH ×4 (08:27→20:00)
[2019-09-07] MEDS: Latanoprost 2.5 ML BOTTLE BOTH EYES SCH (20:13)
[2019-09-08 05:28] LABS: Basophils % 0.6 %; Eosinophils % 1.8 %; Mean Corpuscular Hemoglobin 28.9 pg (28.0-33.3); Red Cell Distribution Width 16.7 % (11.5-14.5)
[2019-09-08 05:29] LABS: Eosinophils # 0.1 K/mcL (0.0-0.6); Hematocrit 30.3 % (37.5-50.1); Hemoglobin 9.8 g/dL (12.9-16.9); Immature Granulocytes % 1.8 % (0-4); Immature Platelets 12.9 % (1.1-6.1); Lymphocytes # 0.5 K/mcL (0.6-4.6); Lymphocytes % 10.6 %; Mean Corpuscular HGB Conc 32.3 g/dL (31.6-35.5); Mean Corpuscular Volume 89.4 fL (83.0-100.0); Monocytes # 0.4 K/mcL (0.0-1.3); Monocytes % 7.6 %; Platelet Count 126 K/mcL (140-400); Red Blood Count 3.39 M/mcL (4.19-5.50); Segmented Neutrophils % 77.6 %; White Blood Count 5.1 K/mcL (4.3-11.1)
[2019-09-08 05:53] LABS: Anisocytosis 2+ (Not Present); Burr Cells 2+ (Not Present); Calcium 8.9 mg/dL (8.6-10.3); Ovalocytes 2+ (Not Present); Platelet Estimate Decreased (Normal); Potassium 3.3 mEq/L (3.5-5.1); Tear Drop Cells 2+ (Not Present)
[2019-09-08] MEDS: Budesonide/Formoterol 160/4.5 1 PUFF INH IH SCH ×2 (07:19→20:44)
[2019-09-08 07:29] LABS: Ova & Parasite Stain NEGATIVE (Negative)
[2019-09-08] MEDS ORDERED: 0.9 % Sodium Chloride 1,000 ML IVC SCH (07:30)
[2019-09-08] MEDS: *HR* Heparin 5,000 UNIT/ML VIAL SQ SCH ×2 (07:33→17:37)
[2019-09-08] MEDS: Sucralfate 1 GM TABLET PO SCH ×4 (07:33→20:35)
[2019-09-08] MEDS: Insulin LISPRO 300 UNITS/3 ML VIAL SQ SCH ×4 (08:18→20:18)
[2019-09-08] MEDS: carvediloL 6.25 MG TABLET PO SCH (08:19)
[2019-09-08] MEDS: amLODIPine 5 MG TABLET PO SCH (08:19)
[2019-09-08] MEDS: cefTRIAXone 1,000 MG in Water for inj. (sterile) 10 ML IVP SCH (08:31)
[2019-09-08] MEDS: Dorzolamide OPTH 10 ML BOTTLE BOTH EYES SCH ×2 (08:31→20:36)
[2019-09-08] MEDS: Ondansetron 4 MG/2 ML VIAL IVP PRN (08:32)
[2019-09-08] MEDS: *HR* Promethazine 25 MG/ML VIAL IVP PRN (14:45)
[2019-09-08] MEDS: Latanoprost 2.5 ML BOTTLE BOTH EYES SCH (20:36)
[2019-09-09 00:57] LABS: Basophils % 0.6 %
[2019-09-09 00:58] LABS: Eosinophils # 0.1 K/mcL (0.0-0.6); Eosinophils % 1.8 %; Hematocrit 28.9 % (37.5-50.1); Hemoglobin 9.7 g/dL (12.9-16.9); Immature Granulocytes % 1.6 % (0-4); Immature Platelets 15.2 % (1.1-6.1); Lymphocytes # 0.5 K/mcL (0.6-4.6); Lymphocytes % 10.7 %; Mean Corpuscular HGB Conc 33.6 g/dL (31.6-35.5); Mean Corpuscular Hemoglobin 28.9 pg (28.0-33.3); Monocytes # 0.4 K/mcL (0.0-1.3); Monocytes % 7.6 %; Neutrophils # 3.9 K/mcL (1.6-8.9); Platelet Count 111 K/mcL (140-400); Red Blood Count 3.36 M/mcL (4.19-5.50); Red Cell Distribution Width 16.9 % (11.5-14.5); Segmented Neutrophils % 77.7 %
[2019-09-09 01:14] LABS: Potassium 3.8 mEq/L (3.5-5.1)
[2019-09-09] MEDS: *HR* Heparin 5,000 UNIT/ML VIAL SQ SCH (05:12)
[2019-09-09] MEDS: Budesonide/Formoterol 160/4.5 1 PUFF INH IH SCH ×2 (07:45→20:14)
[2019-09-09] MEDS: Insulin LISPRO 300 UNITS/3 ML VIAL SQ SCH ×4 (07:54→21:15)
[2019-09-09] MEDS: cefTRIAXone 1,000 MG in Water for inj. (sterile) 10 ML IVP SCH (08:00)
[2019-09-09] MEDS: carvediloL 6.25 MG TABLET PO SCH (08:01)
[2019-09-09] MEDS: amLODIPine 5 MG TABLET PO SCH (08:01)
[2019-09-09] MEDS: Sucralfate 1 GM TABLET PO SCH ×4 (08:02→21:18)
[2019-09-09] MEDS: Dorzolamide OPTH 10 ML BOTTLE BOTH EYES SCH ×2 (08:09→21:18)
[2019-09-09] MEDS: *HR* Promethazine 25 MG/ML VIAL IVP PRN (08:12)
[2019-09-09] MEDS ORDERED: Prochlorperazine 10 MG/2 ML VIAL IVP ONE (14:20)
[2019-09-09] MEDS: Latanoprost 2.5 ML BOTTLE BOTH EYES SCH (21:18)
[2019-09-10 04:49] LABS: Hematocrit 26.9 % (37.5-50.1)
[2019-09-10 04:50] LABS: Basophils % 0.4 %; Eosinophils # 0.1 K/mcL (0.0-0.6); Eosinophils % 1.9 %; Hemoglobin 8.8 g/dL (12.9-16.9); Immature Granulocytes % 2.1 % (0-4); Immature Platelets 14.3 % (1.1-6.1); Lymphocytes # 0.7 K/mcL (0.6-4.6); Lymphocytes % 13.8 %; Mean Corpuscular HGB Conc 32.7 g/dL (31.6-35.5); Mean Corpuscular Hemoglobin 28.9 pg (28.0-33.3); Mean Corpuscular Volume 88.5 fL (83.0-100.0); Monocytes # 0.4 K/mcL (0.0-1.3); Monocytes % 8.9 %; Platelet Count 103 K/mcL (140-400); Red Blood Count 3.04 M/mcL (4.19-5.50); Red Cell Distribution Width 16.8 % (11.5-14.5); Segmented Neutrophils % 72.9 %; White Blood Count 4.9 K/mcL (4.3-11.1)
[2019-09-10 04:52] LABS: Neutrophils # 3.6 K/mcL (1.6-8.9)
[2019-09-10 05:07] LABS: Potassium 3.7 mEq/L (3.5-5.1)
[2019-09-10] MEDS: Budesonide/Formoterol 160/4.5 1 PUFF INH IH SCH ×2 (07:37→20:56)
[2019-09-10] MEDS: carvediloL 6.25 MG TABLET PO SCH (08:47)
[2019-09-10] MEDS: Sucralfate 1 GM TABLET PO SCH ×4 (08:47→21:17)
[2019-09-10] MEDS: Lisinopril 20 MG TABLET PO SCH (08:47)
[2019-09-10] MEDS: Insulin LISPRO 300 UNITS/3 ML VIAL SQ SCH ×4 (08:48→21:06)
[2019-09-10] MEDS: amLODIPine 5 MG TABLET PO SCH (08:48)
[2019-09-10] MEDS: Dorzolamide OPTH 10 ML BOTTLE BOTH EYES SCH ×2 (08:49→21:16)
[2019-09-10 11:27] LABS: Hematocrit 25.5 % (37.5-50.1); Hemoglobin 8.7 g/dL (12.9-16.9); Mean Corpuscular HGB Conc 34.1 g/dL (31.6-35.5); Mean Corpuscular Hemoglobin 28.9 pg (28.0-33.3); Mean Corpuscular Volume 84.7 fL (83.0-100.0); Platelet Count 109 K/mcL (140-400); Red Blood Count 3.01 M/mcL (4.19-5.50); Red Cell Distribution Width 16.6 % (11.5-14.5); White Blood Count 5.4 K/mcL (4.3-11.1)
[2019-09-10 11:40] LABS: % Iron Saturation 24 % (20-55); Iron 43 mcg/dL (65-175); Transferrin 127 mg/dL (203-362)
[2019-09-10] MEDS: Iron Sucrose Complex 250 MG in 0.9 % Sodium Chloride 250 ML IVPB SCH (14:47)
[2019-09-10] MEDS: Latanoprost 2.5 ML BOTTLE BOTH EYES SCH (21:20)
[2019-09-11 04:54] LABS: Eosinophils % 1.7 %; Mean Corpuscular Volume 86.5 fL (83.0-100.0); Segmented Neutrophils % 74.3 %
[2019-09-11 04:56] LABS: Basophils % 0.3 %; Eosinophils # 0.1 K/mcL (0.0-0.6); Hematocrit 28.1 % (37.5-50.1); Hemoglobin 9.1 g/dL (12.9-16.9); Immature Granulocytes % 2.4 % (0-4); Immature Platelets 20.3 % (1.1-6.1); Lymphocytes # 0.7 K/mcL (0.6-4.6); Lymphocytes % 12.3 %; Mean Corpuscular HGB Conc 32.4 g/dL (31.6-35.5); Monocytes # 0.5 K/mcL (0.0-1.3); Neutrophils # 4.4 K/mcL (1.6-8.9); Platelet Count 110 K/mcL (140-400); Red Blood Count 3.25 M/mcL (4.19-5.50); Red Cell Distribution Width 16.8 % (11.5-14.5); White Blood Count 5.9 K/mcL (4.3-11.1)
[2019-09-11 05:14] LABS: Calcium 9.2 mg/dL (8.6-10.3); Potassium 3.9 mEq/L (3.5-5.1)
[2019-09-11] MEDS: Budesonide/Formoterol 160/4.5 1 PUFF INH IH SCH ×2 (07:58→19:54)
[2019-09-11] MEDS: amLODIPine 5 MG TABLET PO SCH (08:24)
[2019-09-11] MEDS: Lisinopril 20 MG TABLET PO SCH (08:24)
[2019-09-11] MEDS: Sucralfate 1 GM TABLET PO SCH ×4 (08:24→22:00)
[2019-09-11] MEDS: carvediloL 6.25 MG TABLET PO SCH (08:24)
[2019-09-11] MEDS: Insulin LISPRO 300 UNITS/3 ML VIAL SQ SCH ×4 (08:25→21:58)
[2019-09-11] MEDS: Dorzolamide OPTH 10 ML BOTTLE BOTH EYES SCH ×2 (08:27→22:00)
[2019-09-11] MEDS: Iron Sucrose Complex 250 MG in 0.9 % Sodium Chloride 250 ML IVPB SCH (08:29)
[2019-09-11] MEDS: Latanoprost 2.5 ML BOTTLE BOTH EYES SCH (22:00)
[2019-09-12] MEDS: Insulin LISPRO 300 UNITS/3 ML VIAL SQ SCH ×4 (07:47→21:57)
[2019-09-12] MEDS: carvediloL 6.25 MG TABLET PO SCH (08:10)
[2019-09-12] MEDS: Sucralfate 1 GM TABLET PO SCH ×4 (08:10→22:01)
[2019-09-12] MEDS: amLODIPine 5 MG TABLET PO SCH (08:10)
[2019-09-12] MEDS: Lisinopril 20 MG TABLET PO SCH (08:10)
[2019-09-12] MEDS: Dorzolamide OPTH 10 ML BOTTLE BOTH EYES SCH ×2 (08:14→22:01)
[2019-09-12] MEDS: Budesonide/Formoterol 160/4.5 1 PUFF INH IH SCH ×2 (10:39→19:58)
[2019-09-12] MEDS: Latanoprost 2.5 ML BOTTLE BOTH EYES SCH (22:01)
[2019-09-13] MEDS: Budesonide/Formoterol 160/4.5 1 PUFF INH IH SCH (07:48)
[2019-09-13] MEDS: Sucralfate 1 GM TABLET PO SCH ×2 (08:16→11:13)
[2019-09-13] MEDS: carvediloL 6.25 MG TABLET PO SCH (08:16)
[2019-09-13] MEDS: amLODIPine 5 MG TABLET PO SCH (08:16)
[2019-09-13] MEDS: Insulin LISPRO 300 UNITS/3 ML VIAL SQ SCH (08:16)
[2019-09-13] MEDS: Lisinopril 20 MG TABLET PO SCH (08:16)
[2019-09-13] MEDS: Dorzolamide OPTH 10 ML BOTTLE BOTH EYES SCH (08:17)
[2019-09-13 10:53] VITALS: BP 129/66
== END 2019-09-13 13:16 | disposition other institution (70) | DRG 377 ==
LOC: EMEROOARM 15:41 → 3ANU 15:41 → SUATTDRO 17:21 → 3ANU 18:14 → SUATTDRO 09-07 18:19
PROVIDERS: ADMIT Pharmacist; ATTEND Internal Medicine
PROC: ENDOEBX (2019-09-05 14:40)